=== PATIENT | female | born 1990 | race African-American/Black ===

== ENCOUNTER 2017-11-30 12:31 | Emergency (ER) | payer MEDICAID ==
[2017-11-30] MEDS ORDERED: ONDANSETRON HCL INJ/PF 4 MG/2 ML SDV IV ONE (12:57)
[2017-11-30] MEDS ORDERED: NORMAL SALINE 1000 ML 1,000 ML IV ONE (12:57)
--- NOTE | 2017-11-30 12:59 | ER Document Report ---
ED Medical Screen (RME) - General Chief Complaint: Abdominal Pain Stated Complaint: ABDOMINAL PAIN,VOMITING,HEADACHE Time Seen by Provider: 11/30/17 12:53 Notes: The patient is a 27-year-old female who presents with 1 day of multiple episodes of nonbloody, nonbilious emesis and watery diarrhea. She is also having a dull frontal headache after vomiting. Patient appears very anxious. Denies recent travel, hematemesis, fevers, tainted food or blood in her stool. PE: Shaking her legs and arms. Nontender abdomen. Normal bowel sounds. RRR. Lungs CTAB. I have greeted and performed a rapid initial assessment of this patient. A comprehensive ED assessment and evaluation of the patient, analysis of test results and completion of the medical decision making process will be conducted by additional ED providers. TRAVEL OUTSIDE OF THE [place] IN LAST 30 DAYS: No - Related Data Allergies/Adverse Reactions: No Known Allergies Allergy (Unverified 11/30/17 12:32) Home Medications: Blood pressure medication-does not know name Past Medical History - Social History Chew tobacco use (# tins/day): No Frequency of alcohol use: Occasional Drug Abuse: Marijuana Renal/ Medical History: Denies: Hx Peritoneal Dialysis Physical Exam - Vital signs Vitals: Temp Pulse Resp BP Pulse Ox 98.6 F 86 20 165/104 H 98 11/30/17 12:35 11/30/17 12:35 11/30/17 12:35 11/30/17 12:35 11/30/17 12:35 Course - Vital Signs Vital signs: Temp Pulse Resp BP Pulse Ox 98.6 F 86 20 165/104 H 98 11/30/17 12:35 11/30/17 12:35 11/30/17 12:35 11/30/17 12:35 11/30/17 12:35
[2017-11-30 13:59] LABS: APPEARANCE,URINE SLIGHTLY-CLOUDY; BILIRUBIN,URINE NEGATIVE (NEGATIVE); GLUCOSE, URINE NEGATIVE (NEGATIVE); KETONES,URINE TRACE mg/dL (NEGATIVE); LEUKOCYTE ESTERASE,URINE NEGATIVE (NEGATIVE); NITRITE,URINE NEGATIVE (NEGATIVE); PROTEIN,URINE 30 mg/dL (NEGATIVE); URINE SPECIFIC GRAVITY 1.019; UROBILINOGEN,URINE NEGATIVE mg/dL (<2.0)
[2017-11-30 14:01] LABS: COLOR,URINE AMBER
[2017-11-30] MEDS ORDERED: HYDROMORPHONE HCL INJ/PF 2 MG/ML AMPULE IV ONE (14:03)
[2017-11-30] MEDS ORDERED: DIPHENHYDRAMINE HCL 50 MG/ML VIAL IV ONE (14:04)
[2017-11-30] MEDS ORDERED: METOCLOPRAMIDE HCL INJ/PF 10 MG/2 ML SDV IV ONE (14:04)
--- NOTE | 2017-11-30 14:06 | ER Document Report ---
ED General - General Chief Complaint: Abdominal Pain Stated Complaint: ABDOMINAL PAIN,VOMITING,HEADACHE Time Seen by Provider: 11/30/17 12:53 Mode of Arrival: Ambulatory Information source: Patient Notes: This is a 27-year-old female with a history of hypertension who presents to the emergency room with nausea, vomiting, diarrhea and some abdominal cramping. Patient states she started to feel bad on Wednesday. She states that the nausea and vomiting did get worse yesterday. Patient states she is currently on her period. She denies any allergies to medicines. TRAVEL OUTSIDE OF THE [place] IN LAST 30 DAYS: No - HPI Onset: Last week Onset/Duration: Gradual Quality of pain: Dull Severity: Moderate Pain Level: 1 Associated symptoms: denies: Chest pain, Shortness of breath Exacerbated by: Denies Relieved by: Denies Similar symptoms previously: Yes Recently seen / treated by doctor: No - Related Data Allergies/Adverse Reactions: No Known Allergies Allergy (Unverified 11/30/17 12:32) Home Medications: Blood pressure medication-does not know name Past Medical History - General Information source: Patient - Social History Smoking Status: Current Some Day Smoker Cigarette use (# per day): Yes - Half pack per day Chew tobacco use (# tins/day): No Frequency of alcohol use: Occasional Drug Abuse: Marijuana Lives with: Family Family History: None Patient has suicidal ideation: No Patient has homicidal ideation: No - Past Medical History Cardiac Medical History: Reports: Hx Hypertension Pulmonary Medical History: Reports: None EENT Medical History: Reports: None Neurological Medical History: Reports: None Endocrine Medical History: Reports: None Renal/ Medical History: Reports: None. Denies: Hx Peritoneal Dialysis Malignancy Medical History: Reports: None GI Medical History: Reports: None Past Surgical History: Reports: Hx Section Review of Systems - Review of Systems Constitutional: denies: Chills, Fever EENT: See HPI Cardiovascular: No symptoms reported Respiratory: No symptoms reported Gastrointestinal: See HPI, Diarrhea, Nausea, Vomiting Genitourinary: No symptoms reported Female Genitourinary: No symptoms reported Musculoskeletal: No symptoms reported Skin: No symptoms reported Hematologic/Lymphatic: No symptoms reported Neurological/Psychological: Headaches Physical Exam - Vital signs Vitals: Temp Pulse Resp BP Pulse Ox 98.6 F 86 20 165/104 H 98 11/30/17 12:35 11/30/17 12:35 11/30/17 12:35 11/30/17 12:35 11/30/17 12:35 Notes: Physical exam: GENERAL: 87-year-old female, alert and oriented 3, patient vomiting actively at time of exam. HEAD: Atraumatic, normocephalic. EYES: Pupils equal round and reactive to light, extraocular movements intact, sclera anicteric, conjunctiva are normal. ENT: TMs normal, nares patent, oropharynx clear without exudates. Moist mucous membranes. NECK: Normal range of motion, supple without obvious mass or JVD. LUNGS: Breath sounds clear to auscultation bilaterally and equal. No wheezes rales or rhonchi. HEART: Regular rate and rhythm without murmurs, rubs or gallops. ABDOMEN: Soft, normoactive bowel sounds. No tenderness to palpation. No guarding, no rebound. No masses appreciated. EXTREMITIES: Normal range of motion, no pitting or edema. No clubbing or cyanosis. NEUROLOGICAL: Cranial nerves II through XII grossly intact. Normal speech, moving all extremities. Since neck is supple. No photophobia. No meningismus. PSYCH: Normal mood, normal affect. SKIN: Warm, Dry, normal turgor, no rashes or lesions noted. Course - Re-evaluation Re-evalutation: 11/30/17 16:31 Patient treated with anti-emetics and IV fluids. She was given a small amount of pain medicine. She is feeling much better at this time. She is requesting something to eat and drink. We will give a p.o. challenge. Her repeat abdominal exam is soft and nontender. 11/30/17 18:16 Patient ate and drank fine. Repeat abdomen exam soft and nontender. Requesting to go home. - Vital Signs Vital signs: Temp Pulse Resp BP Pulse Ox 97.7 F 66 20 132/78 H 100 11/30/17 16:47 11/30/17 16:47 11/30/17 16:47 11/30/17 16:47 11/30/17 16:47 - Laboratory Result Diagrams: 11/30/17 14:49 11/30/17 14:49 Laboratory results interpreted by me: 11/30/17 11/30/17 11/30/17 13:20 14:49 14:49 WBC 13.1 H Hgb 11.6 L Hct 35.1 L MCV 78 L MCH 25.7 L RDW 16.8 H Absolute Neutrophils 10.0 H Potassium 3.4 L BUN 6 L Urine Protein 30 H Urine Ketones TRACE H Urine Blood LARGE H Discharge - Discharge Clinical Impression: Vomiting with nausea, Headache Condition: Stable Disposition: HOME, SELF-CARE Additional Instructions: Please note: Many disease processes evolve over time and the ER visit offers only a brief assessment. This is why it is important that you: 1. Follow-up with your doctor in [place] in the next 24 hours to be reevaluated. When a copy of today's labs with you when you go. 2. If unable to see a physician in the next 24 hours, and you still have nausea and vomiting, return to the emergency room. 3. Return to the ER at once if your symptoms worsen or you are unable to tolerate fluids, if the pain becomes localized to the right lower side of the abdomen, or any concerns you are getting worse. 4. In the meantime, rest, drink plenty of fluids and advance her diet as tolerated. Continue your heart pressure medicine. Prescriptions: Metoclopramide HCl [Reglan 10 mg Tablet] 1 - 2 tab PO ASDIR PRN #10 tablet PRN Reason: Forms: Elevated Blood Pressure
[2017-11-30 15:04] LABS: ABSOLUTE BASOPHILS # (AUTO) 0.1 10^3/uL (0.0-0.2); ABSOLUTE LYMPHOCYTES (AUTO) 2.2 10^3/uL (0.5-4.7); ABSOLUTE MONOCYTES (AUTO) 0.9 10^3/uL (0.1-1.4); BASOPHILS % (AUTO) 0.5 % (0-2); EOSINOPHILS % (AUTO) 0.1 % (0-6); HEMATOCRIT 35.1 % (36.0-47.0); HEMOGLOBIN 11.6 g/dL (12.0-15.5); LYMPHOCYTES % (AUTO) 16.4 % (13-45); MEAN CORPUSCULAR HEMOGLOBIN 25.7 pg (27.0-33.4); MEAN CORPUSCULAR VOLUME 78 fl (80-97); MONOCYTES % (AUTO) 6.7 % (3-13); PLATELET COUNT 357 10^3/uL (150-450); RED BLOOD COUNT 4.52 10^6/uL (3.72-5.28); RED CELL DISTRIBUTION WIDTH 16.8 % (11.5-14.0); SEGMENTED NEUTROPHILS % (AUTO) 76.3 % (42-78); TOTAL CELLS COUNTED % (AUTO) 100 %; WHITE BLOOD COUNT 13.1 10^3/uL (4.0-10.5)
[2017-11-30 15:25] LABS: ALANINE AMINOTRANSFERASE 28 U/L (9-52); ALBUMIN 3.8 g/dL (3.5-5.0); ALKALINE PHOSPHATASE 42 U/L (38-126); ANION GAP 12 (5-19); ASPARTATE AMINO TRANSFERASE 20 U/L (14-36); BILIRUBIN,DIRECT 0.3 mg/dL (0.0-0.4); BILIRUBIN,TOTAL 0.7 mg/dL (0.2-1.3); BLOOD UREA NITROGEN 6 mg/dL (7-20); CARBON DIOXIDE 25 mmol/L (22-30); CHLORIDE 102 mmol/L (98-107); GLUCOSE 106 mg/dL (75-110); LIPASE 56.7 U/L (23-300); POTASSIUM 3.4 mmol/L (3.6-5.0); SODIUM 139.2 mmol/L (137-145); TOTAL PROTEIN 6.8 g/dL (6.3-8.2)
[2017-11-30 16:55] VITALS: BP 132/78
== END 2017-11-30 16:55 | disposition home or self-care (01) ==
LOC: ER 12:31
DX: R11.2 Nausea with vomiting, unspecified (principal); R19.7 Diarrhea, unspecified; R51 Headache; R10.9 Unspecified abdominal pain; F17.210 Nicotine dependence, cigarettes, uncomplicated; I10 Essential (primary) hypertension; Z79.899 Other long term (current) drug therapy
CPT/HCPCS: 99284; 96361; 96374; 96375; 36415; 83690; 85025; 81025; 80053; 81001; J1200; J2765; J1170; J2405; J7030

== ENCOUNTER 2018-03-09 11:01 | Emergency (ER) | payer MEDICAID ==
[2018-03-09] MEDS ORDERED: ONDANSETRON ODT 4 MG TAB (6 TAB/ER DISP) PO PRN (11:39)
[2018-03-09] MEDS ORDERED: KETOROLAC TROMETHAMINE 60 MG/2 ML SDV IM ONE (11:39)
--- NOTE | 2018-03-09 11:44 | ER Document Report ---
ED Medical Screen (RME) - General Chief Complaint: Abdominal Pain Stated Complaint: ABDOMINAL PAIN Time Seen by Provider: 03/09/18 11:38 Notes: 27 years old female presents today with 2 day history of intractable right- sided headache associated with nausea and vomited many times. No fever chills or other constitutional symptoms. Denies any injuries. On examination-very dramatic. Tenderness over the right side of the cervical muscles as well as temporal mandibular tenderness noted. TRAVEL OUTSIDE OF THE [place] IN LAST 30 DAYS: No - Related Data Allergies/Adverse Reactions: No Known Allergies Allergy (Verified 03/09/18 11:01) Past Medical History - Social History Frequency of alcohol use: Social Drug Abuse: Marijuana - Past Medical History Cardiac Medical History: Reports: Hx Hypertension Renal/ Medical History: Denies: Hx Peritoneal Dialysis Past Surgical History: Reports: Hx Section Physical Exam - Vital signs Vitals: Temp Pulse Resp BP Pulse Ox 98.1 F 90 20 183/112 H 99 03/09/18 11:05 03/09/18 11:05 03/09/18 11:05 03/09/18 11:05 03/09/18 11:05 Course - Vital Signs Vital signs: Temp Pulse Resp BP Pulse Ox 98.1 F 90 20 183/112 H 99 03/09/18 11:05 03/09/18 11:05 03/09/18 11:05 03/09/18 11:05 03/09/18 11:05
[2018-03-09 12:18] LABS: ABSOLUTE BASOPHILS # (AUTO) 0.1 10^3/uL (0.0-0.2); ABSOLUTE LYMPHOCYTES (AUTO) 2.8 10^3/uL (0.5-4.7); ABSOLUTE MONOCYTES (AUTO) 0.7 10^3/uL (0.1-1.4); ABSOLUTE NEUT (AUTO) 10.2 10^3/uL (1.7-8.2); BASOPHILS % (AUTO) 0.5 % (0-2); HEMATOCRIT 36.9 % (36.0-47.0); HEMOGLOBIN 12.2 g/dL (12.0-15.5); LYMPHOCYTES % (AUTO) 20.4 % (13-45); MEAN CORPUSCULAR HEMOGLOBIN 25.9 pg (27.0-33.4); MEAN CORPUSCULAR VOLUME 79 fl (80-97); MONOCYTES % (AUTO) 4.9 % (3-13); PLATELET COUNT 412 10^3/uL (150-450); RED CELL DISTRIBUTION WIDTH 16.8 % (11.5-14.0); SEGMENTED NEUTROPHILS % (AUTO) 74.2 % (42-78); TOTAL CELLS COUNTED % (AUTO) 100 %; WHITE BLOOD COUNT 13.7 10^3/uL (4.0-10.5)
[2018-03-09 12:23] LABS: APPEARANCE,URINE SLIGHTLY-CLOUDY; BILIRUBIN,URINE NEGATIVE (NEGATIVE); COLOR,URINE YELLOW; GLUCOSE, URINE NEGATIVE (NEGATIVE); KETONES,URINE TRACE mg/dL (NEGATIVE); LEUKOCYTE ESTERASE,URINE NEGATIVE (NEGATIVE); NITRITE,URINE NEGATIVE (NEGATIVE); PROTEIN,URINE NEGATIVE (NEGATIVE); URINE SPECIFIC GRAVITY 1.014; UROBILINOGEN,URINE NEGATIVE mg/dL (<2.0)
[2018-03-09 12:38] LABS: ALANINE AMINOTRANSFERASE 21 U/L (9-52); ALKALINE PHOSPHATASE 46 U/L (38-126); ANION GAP 16 (5-19); ASPARTATE AMINO TRANSFERASE 18 U/L (14-36); BILIRUBIN,DIRECT 0.3 mg/dL (0.0-0.4); BILIRUBIN,TOTAL 0.8 mg/dL (0.2-1.3); BLOOD UREA NITROGEN 6 mg/dL (7-20); CALCIUM 9.1 mg/dL (8.4-10.2); CARBON DIOXIDE 24 mmol/L (22-30); CHLORIDE 101 mmol/L (98-107); GLUCOSE 115 mg/dL (75-110); POTASSIUM 3.4 mmol/L (3.6-5.0); SODIUM 140.8 mmol/L (137-145); TOTAL PROTEIN 7.6 g/dL (6.3-8.2)
[2018-03-09 12:46] LABS: URINE AMPHETAMINES SCREEN NEGATIVE; URINE BARBITURATES SCREEN NEGATIVE; URINE BENZODIAZEPINES SCREEN NEGATIVE; URINE COCAINE SCREEN NEGATIVE; URINE MARIJUANA (THC) SCREEN UNCONFIRMED POSITIVE; URINE METHADONE SCREEN NEGATIVE; URINE PHENCYCLIDINE SCREEN NEGATIVE
--- NOTE | 2018-03-09 13:20 | RADIOLOGY REPORT (SQ) ---
EXAM DESCRIPTION: CT HEAD WITHOUT COMPLETED DATE/TIME: 03/09/2018 12:23 pm REASON FOR STUDY: Headache COMPARISON: None. TECHNIQUE: Axial images acquired through the brain without intravenous contrast. Images reviewed wi th bone, brain and subdural windows. Images stored on PACS. All CT scanners at this facility use dose modulation, iterative reconstruction, and/or weight based d osing when appropriate to reduce radiation dose to as low as reasonably achievable (ALARA). [facility]: Dose Right [facility]: CareDose [facility]: Dose Right [facility]: Teradose 4D [facility]: Smart Schedulize RADIATION DOSE: CT Rad equipment meets quality standard of care and radiation dose reduction techniq ues were employed. CTDIvol: 53.2 mGy. DLP: 964 mGy-cm. mGy. LIMITATIONS: None. FINDINGS: VENTRICLES: Normal size and contour. CEREBRUM: No masses. No hemorrhage. No midline shift. No evidence for acute infarction. Normal gra y/white matter differentiation. No areas of low density in the white matter. CEREBELLUM: No masses. No hemorrhage. No alteration of density. No evidence for acute infarction. EXTRAAXIAL SPACES: No fluid collections. No masses. ORBITS AND GLOBE: No intra- or extraconal masses. Normal contour of globe without masses. CALVARIUM: No fracture. PARANASAL SINUSES: No fluid or mucosal thickening. SOFT TISSUES: No mass or hematoma. OTHER: No other significant finding. IMPRESSION: NORMAL BRAIN CT WITHOUT CONTRAST. EVIDENCE OF ACUTE STROKE: NO. COMMENT: Quality ID # [id number]: Final reports with documentation of one or more dose reduction techniques (e.g., Automated exposure control, adjustment of the mA and/or kV according to patient size, use of iterative reconstruction technique) TECHNICAL DOCUMENTATION: JOB ID: [id number] [employer]- All Rights Reserved Reading location - IP/workstation name: [facility]
[2018-03-09 13:38] VITALS: BP 167/111
[2018-03-09] MEDS ORDERED: NORMAL SALINE 1000 ML 1,000 ML IV ONE (13:41)
[2018-03-09] MEDS ORDERED: FENTANYL CITRATE INJ/PF 100 MCG/2 ML AMPUL IV ONE (13:41)
[2018-03-09] MEDS ORDERED: ONDANSETRON HCL INJ/PF 4 MG/2 ML SDV IV ONE (13:41)
--- NOTE | 2018-03-09 15:05 | ER Document Report ---
ED General - General Chief Complaint: Abdominal Pain Stated Complaint: ABDOMINAL PAIN Time Seen by Provider: 03/09/18 11:38 Notes: 27-year-old female patient to the emergency department chief complaint of nausea and vomiting and abdominal pain. Patient states that she has been drinking "hard liquor" and she "needs an IV and give me something for the pain" . States that she also has a bad headache. When asked if she thinks she has a hangover she will not answer. Patient was seen initially at triage and received Toradol IM. Patient states that that is not going to work that she is going to need an IV. Patient states that she has chronic headaches. When asked if she has a primary care doctor locally she says "I am not from around here". TRAVEL OUTSIDE OF THE [place] IN LAST 30 DAYS: No - HPI Onset: This morning Onset/Duration: Gradual, Persistent Quality of pain: Dull Severity: Moderate Pain Level: 3 Associated symptoms: Nausea, Vomiting - Related Data Allergies/Adverse Reactions: No Known Allergies Allergy (Verified 03/09/18 11:01) Past Medical History - General Information source: Patient - Social History Smoking Status: Current Every Day Smoker Frequency of alcohol use: Social Drug Abuse: Marijuana Lives with: Family Family History: None Patient has suicidal ideation: No Patient has homicidal ideation: No - Past Medical History Cardiac Medical History: Reports: Hx Hypertension Renal/ Medical History: Denies: Hx Peritoneal Dialysis Past Surgical History: Reports: Hx Section Review of Systems - Review of Systems Notes: Constitutional: denies: Chills, Diaphoresis, Fever, Malaise, Weakness EENT: denies: Eye discharge, Blurred vision, Tearing, Double vision, Nose congestion, Nose discharge, Throat swelling, Mouth pain Cardiovascular: denies: Palpitations, Heart racing, Orthopnea, Dyspnea, Chest pain Respiratory: denies: Cough, Hurts to breathe, Wheezing, Shortness of breath Gastrointestinal: Nausea, vomiting, abdominal pain Genitourinary: denies: Burning, Dysuria, Discharge, Frequency, Flank pain, Hematuria Musculoskeletal: denies: Joint pain, Joint swelling, Muscle pain, Muscle stiffness, back pain Hematologic/Lymphatic: denies: Anemia, Easy bleeding, Easy bruising, Blood clots Neurological/Psychological: denies: Confusion, Dementia, Depression, Loss of consciousness. Positive for headaches Skin: No lesions, no masses, no skin breakdown, no abscesses Physical Exam - Vital signs Vitals: Temp Pulse Resp BP Pulse Ox 98.1 F 90 20 183/112 H 99 03/09/18 11:05 03/09/18 11:05 03/09/18 11:05 03/09/18 11:05 03/09/18 11:05 Interpretation: Hypertensive - General General appearance: Appears well, Alert - HEENT Head: Normocephalic, Atraumatic Eyes: Normal Pupils: PERRL - Respiratory Respiratory status: No respiratory distress Chest status: Nontender Breath sounds: Normal Chest palpation: Normal - Cardiovascular Rhythm: Regular Heart sounds: Normal auscultation Murmur: No - Abdominal Inspection: Normal Distension: No distension Bowel sounds: Normal Tenderness: Nontender Organomegaly: No organomegaly - Back Back: Normal, Nontender - Extremities General upper extremity: Normal inspection, Nontender, Normal color, Normal ROM , Normal temperature General lower extremity: Normal inspection, Nontender, Normal color, Normal ROM , Normal temperature, Normal weight bearing. No: Malini's sign - Neurological Neuro grossly intact: Yes Cognition: Normal Orientation: AAOx4 Tr Coma Scale Eye Opening: Spontaneous Rye Coma Scale Verbal: Oriented [place]ye Coma Scale Motor: Obeys Commands Tr Coma Scale Total: 15 Speech: Normal Motor strength normal: LUE, RUE, LLE, RLE Sensory: Normal - Psychological Associated symptoms: Normal affect, Normal mood - Skin Skin Temperature: Warm Skin Moisture: Dry Skin Color: Normal Course - Re-evaluation Re-evalutation: 03/09/18 15:13 Patient was evaluated. When I entered the room she was asleep. At the had to wake her up to do the exam. After waking her up she began to complain of pain. I have ordered IV fluids and pain medicine and nausea control. Patient has a slightly elevated WBC count but a very benign abdominal exam. She denies Any vaginal complaints or lower pelvic pain.. 03/09/18 15:13 03/09/18 16:09 Patient is sitting upright now. Feels much better. Has a slight elevated WBC count. She is hungry and eating tolerating p.o. At this time will DC. 03/09/18 16:13 Laboratory 03/09/18 03/09/18 03/09/18 11:43 11:43 11:43 WBC 13.7 H RBC 4.70 Hgb 12.2 Hct 36.9 MCV 79 L MCH 25.9 L MCHC 33.0 RDW 16.8 H Plt Count 412 Seg Neutrophils % 74.2 Lymphocytes % 20.4 Monocytes % 4.9 Eosinophils % 0.0 Basophils % 0.5 Absolute Neutrophils 10.2 H Absolute Lymphocytes 2.8 Absolute Monocytes 0.7 Absolute Eosinophils 0.0 Absolute Basophils 0.1 Sodium 140.8 Potassium 3.4 L Chloride 101 Carbon Dioxide 24 Anion Gap 16 BUN 6 L Creatinine 0.57 Est GFR ( Amer) > 60 Est GFR (Non-Af Amer) > 60 Glucose 115 H Calcium 9.1 Total Bilirubin 0.8 Direct Bilirubin 0.3 Neonat Total Bilirubin Not Reportable Neonat Direct Bilirubin Not Reportable Neonat Indirect Bili Not Reportable AST 18 ALT 21 Alkaline Phosphatase 46 Total Protein 7.6 Albumin 4.0 Lipase Urine Color YELLOW Urine Appearance SLIGHTLY-CLOUDY Urine pH 7.0 Ur Specific [place] 1.014 Urine Protein NEGATIVE Urine Glucose (UA) NEGATIVE Urine Ketones TRACE H Urine Blood NEGATIVE Urine Nitrite NEGATIVE Urine Bilirubin NEGATIVE Urine Urobilinogen NEGATIVE Ur Leukocyte Esterase NEGATIVE Urine WBC (Auto) 3 Urine RBC (Auto) 5 U Hyaline Cast (Auto) 1 Squamous Epi Cells Auto 5 Urine Mucus (Auto) OCC Urine Ascorbic Acid NEGATIVE Urine HCG, Qual NEGATIVE Urine Opiates Screen Urine Methadone Screen Ur Barbiturates Screen Ur Phencyclidine Scrn Ur Amphetamines Screen U Benzodiazepines Scrn Urine Cocaine Screen U Marijuana (THC) Screen 03/09/18 03/09/18 11:43 11:43 WBC RBC Hgb Hct MCV MCH MCHC RDW Plt Count Seg Neutrophils % Lymphocytes % Monocytes % Eosinophils % Basophils % Absolute Neutrophils Absolute Lymphocytes Absolute Monocytes Absolute Eosinophils Absolute Basophils Sodium Potassium Chloride Carbon Dioxide Anion Gap BUN Creatinine Est GFR ( Amer) Est GFR (Non-Af Amer) Glucose Calcium Total Bilirubin Direct Bilirubin Neonat Total Bilirubin Neonat Direct Bilirubin Neonat Indirect Bili AST ALT Alkaline Phosphatase Total Protein Albumin Lipase 64.3 Urine Color Urine Appearance Urine pH Ur Specific [place] Urine Protein Urine Glucose (UA) Urine Ketones Urine Blood Urine Nitrite Urine Bilirubin Urine Urobilinogen Ur Leukocyte Esterase Urine WBC (Auto) Urine RBC (Auto) U Hyaline Cast (Auto) Squamous Epi Cells Auto Urine Mucus (Auto) Urine Ascorbic Acid Urine HCG, Qual Urine Opiates Screen NEGATIVE Urine Methadone Screen NEGATIVE Ur Barbiturates Screen NEGATIVE Ur Phencyclidine Scrn NEGATIVE Ur Amphetamines Screen NEGATIVE U Benzodiazepines Scrn NEGATIVE Urine Cocaine Screen NEGATIVE U Marijuana (THC) Screen UNCONFIRMED POSITIVE - Vital Signs Vital signs: Temp Pulse Resp BP Pulse Ox 98.9 F 89 18 167/111 H 99 03/09/18 13:35 03/09/18 13:35 03/09/18 13:35 03/09/18 13:35 03/09/18 13:35 - Laboratory Result Diagrams: 03/09/18 11:43 03/09/18 11:43 Laboratory results interpreted by me: 03/09/18 03/09/18 03/09/18 11:43 11:43 11:43 WBC 13.7 H MCV 79 L MCH 25.9 L RDW 16.8 H Absolute Neutrophils 10.2 H Potassium 3.4 L BUN 6 L Glucose 115 H Urine Ketones TRACE H Discharge - Discharge Clinical Impression: Acute gastritis Qualifiers: Gastritis type: unspecified gastritis Gastritis bleeding: without bleeding Qualified Code(s): K29.00 - Acute gastritis without bleeding Condition: Good Instructions: Abdominal Pain ([facility]), Observation for Appendicitis ([facility]), Nausea or Vomiting, Nonspecific ([facility]) Prescriptions: Famotidine [Pepcid 20 mg Tablet] 20 mg PO DAILY #12 tablet Promethazine HCl [Phenergan 25 mg Supp.rect] 1 supp NC Q6H #12 supp.rect
[2018-03-09] MEDS ORDERED: FAMOTIDINE 20 MG TABLET PO ONE (16:14)
== END 2018-03-09 16:37 | disposition home or self-care (01) ==
LOC: ER 11:01
DX: K29.00 Acute gastritis without bleeding (principal); R11.2 Nausea with vomiting, unspecified; R10.9 Unspecified abdominal pain; R51 Headache; D72.829 Elevated white blood cell count, unspecified; I10 Essential (primary) hypertension; F17.200 Nicotine dependence, unspecified, uncomplicated
CPT/HCPCS: 99284; 96361; 96374; 96375; 36415; 83690; 85025; 81025; 80053; 81001; 80307; 70450; J3490; J1885; J3010; J2405; J7030

== ENCOUNTER 2018-03-11 08:46 | Emergency (ER) | payer MEDICAID ==
[2018-03-11 09:00] VITALS: BP 144/95
[2018-03-11] MEDS ORDERED: ONDANSETRON 4 MG TAB.RAPDIS PO ONE (09:22)
--- NOTE | 2018-03-11 09:24 | ER Document Report ---
ED Medical Screen (RME) - General Chief Complaint: Nausea/Vomiting Stated Complaint: VOMITING, HEADACHE Time Seen by Provider: 03/11/18 09:21 Mode of Arrival: Ambulatory Information source: Patient TRAVEL OUTSIDE OF THE [place] IN LAST 30 DAYS: No - HPI Patient complains to provider of: abd pain; vomiting Onset: Yesterday - pt with vomiting that started yesterday and crampy abdominal pain - Related Data Allergies/Adverse Reactions: No Known Allergies Allergy (Verified 03/09/18 11:01) Past Medical History - Past Medical History Cardiac Medical History: Reports: Hx Hypertension Renal/ Medical History: Denies: Hx Peritoneal Dialysis Past Surgical History: Reports: Hx Section Physical Exam - Vital signs Vitals: Temp Pulse Resp BP Pulse Ox 98.7 F 77 14 144/95 H 99 03/11/18 08:58 03/11/18 08:58 03/11/18 08:58 03/11/18 08:58 03/11/18 08:58 Course - Vital Signs Vital signs: Temp Pulse Resp BP Pulse Ox 98.7 F 77 14 144/95 H 99 03/11/18 08:58 03/11/18 08:58 03/11/18 08:58 03/11/18 08:58 03/11/18 08:58
[2018-03-11 10:00] LABS: ABSOLUTE BASOPHILS # (AUTO) 0.1 10^3/uL (0.0-0.2); ABSOLUTE LYMPHOCYTES (AUTO) 2.7 10^3/uL (0.5-4.7); ABSOLUTE MONOCYTES (AUTO) 0.8 10^3/uL (0.1-1.4); ABSOLUTE NEUT (AUTO) 10.4 10^3/uL (1.7-8.2); BASOPHILS % (AUTO) 0.5 % (0-2); EOSINOPHILS % (AUTO) 0.2 % (0-6); HEMATOCRIT 36.8 % (36.0-47.0); LYMPHOCYTES % (AUTO) 19.2 % (13-45); MEAN CORPUSCULAR HGB CONC 32.7 g/dL (32.0-36.0); MEAN CORPUSCULAR VOLUME 80 fl (80-97); MONOCYTES % (AUTO) 5.6 % (3-13); PLATELET COUNT 413 10^3/uL (150-450); RED BLOOD COUNT 4.63 10^6/uL (3.72-5.28); RED CELL DISTRIBUTION WIDTH 16.5 % (11.5-14.0); SEGMENTED NEUTROPHILS % (AUTO) 74.5 % (42-78); TOTAL CELLS COUNTED % (AUTO) 100 %; WHITE BLOOD COUNT 13.9 10^3/uL (4.0-10.5)
[2018-03-11 10:16] LABS: AMORPHOUS SEDIMENT,URINE TRACE /HPF; APPEARANCE,URINE CLOUDY; BILIRUBIN,URINE NEGATIVE (NEGATIVE); COLOR,URINE YELLOW; GLUCOSE, URINE NEGATIVE (NEGATIVE); KETONES,URINE 20 mg/dL (NEGATIVE); LEUKOCYTE ESTERASE,URINE NEGATIVE (NEGATIVE); NITRITE,URINE NEGATIVE (NEGATIVE); PROTEIN,URINE 30 mg/dL (NEGATIVE); URINE SPECIFIC GRAVITY 1.027
[2018-03-11 10:33] LABS: ALANINE AMINOTRANSFERASE 25 U/L (9-52); ALBUMIN 3.8 g/dL (3.5-5.0); ALKALINE PHOSPHATASE 41 U/L (38-126); ANION GAP 10 (5-19); ASPARTATE AMINO TRANSFERASE 14 U/L (14-36); BILIRUBIN,DIRECT 0.2 mg/dL (0.0-0.4); BILIRUBIN,TOTAL 0.8 mg/dL (0.2-1.3); BLOOD UREA NITROGEN 8 mg/dL (7-20); CALCIUM 8.9 mg/dL (8.4-10.2); CARBON DIOXIDE 29 mmol/L (22-30); CHLORIDE 101 mmol/L (98-107); GLUCOSE 87 mg/dL (75-110); POTASSIUM 3.4 mmol/L (3.6-5.0); SODIUM 140.4 mmol/L (137-145); TOTAL PROTEIN 7.1 g/dL (6.3-8.2)
[2018-03-11] MEDS ORDERED: NORMAL SALINE 1000 ML 1,000 ML IV ONE (10:55)
--- NOTE | 2018-03-11 11:03 | RADIOLOGY REPORT (SQ) ---
EXAM DESCRIPTION: ACUTE ABDOMEN SERIES COMPLETED DATE/TIME: 03/11/2018 10:47 am REASON FOR STUDY: abd pain COMPARISON: None. NUMBER OF VIEWS: Three views. TECHNIQUE: Frontal chest, supine abdomen and upright/decubitus abdomen radiographic images acquired. LIMITATIONS: None. FINDINGS: CHEST: Lungs clear of infiltrates. FREE AIR: None. No abnormal gas collections. BOWEL GAS PATTERN: Nonobstructive pattern. No dilated loops or air fluid levels. CALCIFICATIONS: No suspicious calcifications. HARDWARE: None in the abdomen. SOFT TISSUES: No gross mass or suggestion of organomegaly. BONES: No acute fracture. No worrisome bone lesions. OTHER: No other significant finding. IMPRESSION: NO RADIOGRAPHIC EVIDENCE FOR ACUTE ABDOMINAL DISEASE. TECHNICAL DOCUMENTATION: JOB ID: [id number] [employer]- All Rights Reserved Reading location - IP/workstation name: [email or web address]
[2018-03-11] MEDS ORDERED: DIPHENHYDRAMINE HCL 50 MG/ML VIAL IV ONE (11:04)
[2018-03-11] MEDS ORDERED: PROCHLORPERAZINE EDISYLATE INJ 10 MG/2 ML VIAL IV ONE (11:04)
[2018-03-11] MEDS ORDERED: KETOROLAC TROMETHAMINE INJ/PF 30 MG/1 ML SDV IV ONE (11:05)
[2018-03-11 12:02] LABS: LIPASE 34.5 U/L (23-300)
[2018-03-11] MEDS ORDERED: PROMETHAZINE HCL 25 MG SUPP.RECT PR ONE (13:28)
--- NOTE | 2018-03-11 13:31 | ER Document Report ---
ED GI/ - General Chief Complaint: Nausea/Vomiting Stated Complaint: VOMITING, HEADACHE Time Seen by Provider: 03/11/18 09:21 Mode of Arrival: Ambulatory Information source: Patient Notes: Patient presents complaining of headache with nausea and vomiting that started yesterday. Patient states she did have abdominal tenderness although states that it is improved and she thinks it was only due to the vomiting. Patient denies any fever. Patient denies any diarrhea. TRAVEL OUTSIDE OF THE [place] IN LAST 30 DAYS: No - HPI Patient complains to provider of: Abdominal pain - Now resolved, Vomiting Onset: Yesterday Timing/Duration: Gradual Quality of pain: Achy Pain Level: 4 Location: Other - Headache Vaginal bleeding (Compared to normal period): None Associated symptoms: Nausea, Vomiting. denies: Diarrhea, Dizzy, Fever, Loss of appetite, Urinary hesitancy, Urinary frequency, Urinary retention Exacerbated by: Denies Relieved by: Denies Similar symptoms previously: No Recently seen / treated by doctor: No - Related Data Allergies/Adverse Reactions: No Known Allergies Allergy (Verified 03/11/18 09:23) Past Medical History - General Information source: Patient - Social History Smoking Status: Current Every Day Smoker Frequency of alcohol use: None Drug Abuse: None Occupation: alf Lives with: Family Family History: None Patient has suicidal ideation: No Patient has homicidal ideation: No - Past Medical History Cardiac Medical History: Reports: Hx Hypertension Renal/ Medical History: Denies: Hx Peritoneal Dialysis Past Surgical History: Reports: Hx Section Review of Systems - Review of Systems Constitutional: No symptoms reported. denies: Fever EENT: No symptoms reported. denies: Throat pain Cardiovascular: No symptoms reported. denies: Chest pain Respiratory: No symptoms reported. denies: Cough, Short of breath Gastrointestinal: Abdominal pain, Nausea, Vomiting Genitourinary: No symptoms reported. denies: Dysuria, Flank pain Female Genitourinary: No symptoms reported. denies: Musculoskeletal: No symptoms reported. denies: Back pain Skin: No symptoms reported Hematologic/Lymphatic: No symptoms reported Neurological/Psychological: Headaches Physical Exam - Vital signs Vitals: Temp Pulse Resp BP Pulse Ox 98.7 F 77 14 144/95 H 99 03/11/18 08:58 03/11/18 08:58 03/11/18 08:58 03/11/18 08:58 03/11/18 08:58 - General General appearance: Appears well, Alert In distress: None - HEENT Head: Normocephalic, Atraumatic Eyes: Normal Conjunctiva: Normal Nasal: Normal Mouth/Lips: Normal Mucous membranes: Normal Pharynx: Normal Neck: Normal, Supple. No: Lymphadenopathy - Respiratory Respiratory status: No respiratory distress Chest status: Nontender Breath sounds: Normal. No: Rales, Rhonchi, Stridor, Wheezing Chest palpation: Normal - Cardiovascular Rhythm: Regular Heart sounds: S1 appreciated, S2 appreciated Murmur: No - Abdominal Inspection: Morbidly Obese Distension: No distension Bowel sounds: Normal Tenderness: Nontender Organomegaly: No organomegaly - Back Back: Normal, Nontender. No: CVA tenderness - Extremities General upper extremity: Normal inspection, Normal ROM General lower extremity: Normal inspection, Normal ROM - Neurological Neuro grossly intact: Yes Cognition: Normal Tr Coma Scale Eye Opening: Spontaneous [place] Coma Scale Verbal: Oriented Tr Coma Scale Motor: Obeys Commands [place] Coma Scale Total: 15 - Psychological Associated symptoms: Normal affect, Normal mood - Skin Skin Temperature: Warm Skin Moisture: Dry Skin Color: Normal Course - Re-evaluation Re-evalutation: 03/11/18 13:30 Patient denies any vomiting but would like to have Phenergan in anticipation of being discharged home. P.o. fluids provided. Patient reports modest improvement of headache symptoms. 03/11/18 13:48 Patient tolerated oral fluids without emesis. Patient states she is feeling better and is ready to be discharged home. The patient presents with headache without signs of BENCH MOLDER bleed, stroke, infection, or other serious etiology. The patient is neurologically intact. Given the extremely low risk of these diagnoses further testing and evaluation for these possibilities does not appear to be indicated at this time. Patient presents with abdominal pain without signs of peritonitis or other life-threatening or serious etiology. Patient appears stable for discharge and has been instructed to return immediately if the symptoms worsen in any way, or in 8-12 hours if not improved for reevaluation. The patient has been instructed to return if the symptoms worsen or change in any way. - Vital Signs Vital signs: Temp Pulse Resp BP Pulse Ox 98.7 F 77 14 144/95 H 99 03/11/18 08:58 03/11/18 08:58 03/11/18 08:58 03/11/18 08:58 03/11/18 08:58 - Laboratory Result Diagrams: 03/11/18 09:30 03/11/18 09:30 Laboratory results interpreted by me: 03/11/18 03/11/18 03/11/18 09:30 09:30 09:30 WBC 13.9 H MCH 26.0 L RDW 16.5 H Absolute Neutrophils 10.4 H Potassium 3.4 L Urine Protein 30 H Urine Ketones 20 H Urine Urobilinogen 4.0 H 03/11/18 13:48 Labs- Entire Visit 03/11/18 03/11/18 03/11/18 09:30 09:30 09:30 WBC 13.9 H RBC 4.63 Hgb 12.0 Hct 36.8 MCV 80 MCH 26.0 L MCHC 32.7 RDW 16.5 H Plt Count 413 Seg Neutrophils % 74.5 Lymphocytes % 19.2 Monocytes % 5.6 Eosinophils % 0.2 Basophils % 0.5 Absolute Neutrophils 10.4 H Absolute Lymphocytes 2.7 Absolute Monocytes 0.8 Absolute Eosinophils 0.0 Absolute Basophils 0.1 Sodium 140.4 Potassium 3.4 L Chloride 101 Carbon Dioxide 29 Anion Gap 10 BUN 8 Creatinine 0.66 Est GFR ( Amer) > 60 Est GFR (Non-Af Amer) > 60 Glucose 87 Calcium 8.9 Magnesium Total Bilirubin 0.8 Direct Bilirubin 0.2 Neonat Total Bilirubin Not Reportable Neonat Direct Bilirubin Not Reportable Neonat Indirect Bili Not Reportable AST 14 ALT 25 Alkaline Phosphatase 41 Total Protein 7.1 Albumin 3.8 Lipase Urine Color YELLOW Urine Appearance CLOUDY Urine pH 6.0 Ur Specific [place] 1.027 Urine Protein 30 H Urine Glucose (UA) NEGATIVE Urine Ketones 20 H Urine Blood NEGATIVE Urine Nitrite NEGATIVE Urine Bilirubin NEGATIVE Urine Urobilinogen 4.0 H Ur Leukocyte Esterase NEGATIVE Urine WBC (Auto) 9 Urine RBC (Auto) 13 Urine Bacteria (Auto) TRACE Squamous Epi Cells Auto 27 Amorphous Sediment Auto TRACE Urine Mucus (Auto) MANY Urine Ascorbic Acid NEGATIVE Urine HCG, Qual NEGATIVE 03/11/18 09:30 WBC RBC Hgb Hct MCV MCH MCHC RDW Plt Count Seg Neutrophils % Lymphocytes % Monocytes % Eosinophils % Basophils % Absolute Neutrophils Absolute Lymphocytes Absolute Monocytes Absolute Eosinophils Absolute Basophils Sodium Potassium Chloride Carbon Dioxide Anion Gap BUN Creatinine Est GFR ( Amer) Est GFR (Non-Af Amer) Glucose Calcium Magnesium 1.9 Total Bilirubin Direct Bilirubin Neonat Total Bilirubin Neonat Direct Bilirubin Neonat Indirect Bili AST ALT Alkaline Phosphatase Total Protein Albumin Lipase 34.5 Urine Color Urine Appearance Urine pH Ur Specific [place] Urine Protein Urine Glucose (UA) Urine Ketones Urine Blood Urine Nitrite Urine Bilirubin Urine Urobilinogen Ur Leukocyte Esterase Urine WBC (Auto) Urine RBC (Auto) Urine Bacteria (Auto) Squamous Epi Cells Auto Amorphous Sediment Auto Urine Mucus (Auto) Urine Ascorbic Acid Urine HCG, Qual - Diagnostic Test Radiology reviewed: Reports reviewed Discharge - Discharge Clinical Impression: Hypokalemia Headache Qualifiers: Headache type: unspecified Headache chronicity pattern: unspecified pattern Intractability: not intractable Qualified Code(s): R51 - Headache Nausea and vomiting Qualifiers: Vomiting type: unspecified Vomiting Intractability: non-intractable Qualified Code(s): R11.2 - Nausea with vomiting, unspecified Condition: Stable Disposition: HOME, SELF-CARE Instructions: Antinausea Medication ([facility]), Headache ([facility]), Viral Syndrome ([facility]) , Vomiting ([facility]) Additional Instructions: Return immediately for any new or worsening symptoms Followup with your primary care provider, call tomorrow to make a followup appointment Stay well-hydrated, increase oral fluids Prescriptions: Promethazine HCl [Phenergan 25 mg Supp.rect] 1 supp [place] Q6H PRN #12 supp.rect PRN Reason: Forms: Return to Work Referrals: [facility] [Provider Group] - Follow up as needed
[2018-03-11] MEDS ORDERED: POTASSIUM CHLORIDE 10 MEQ CAPSULE.ER PO ONE (13:49)
== END 2018-03-11 14:10 | disposition home or self-care (01) ==
LOC: ER 08:46
DX: R11.2 Nausea with vomiting, unspecified (principal); E87.6 Hypokalemia; R51 Headache; R10.9 Unspecified abdominal pain; I10 Essential (primary) hypertension; F17.200 Nicotine dependence, unspecified, uncomplicated
CPT/HCPCS: 99284; 96374; 96375; 36415; 83690; 83735; 85025; 81025; 80053; 81001; 74022; J1200; S0119; J1885; J0780; J3490

== ENCOUNTER 2018-06-02 09:05 | Emergency (ER) | payer MEDICAID ==
[2018-06-02] MEDS ORDERED: ONDANSETRON 4 MG TAB.RAPDIS PO ONE (09:21)
[2018-06-02] MEDS ORDERED: MORPHINE SULFATE 10 MG/ML INJ IV ONE ×2 (09:22→10:37)
--- NOTE | 2018-06-02 09:27 | ER Document Report ---
ED Medical Screen (RME) - General Chief Complaint: Abdominal Pain Stated Complaint: BACK PAIN, ABDOMINAL PAIN,VOMITING Time Seen by Provider: 06/02/18 09:16 Mode of Arrival: Ambulatory Information source: Patient Notes: 27-year-old female with past medical history significant for hypertension presents emergency department with headache, rhinorrhea, upper back pain, myalgias, abdominal pain for the last 2 days. Symptoms have been constant. Patient states that she initially had some nausea and vomiting. She states that she began developing diffuse abdominal pain that she describes as an aching sensation. She denies any radiation of the pain. She denies any alleviating or exacerbating factors. Patient states that she is also having pain in her upper back. She describes it as a sharp and stabbing sensation. She denies any radiation of this pain. She denies any alleviating or exacerbating factors. Headache is a dull ache in the forehead. No radiation. Gradual onset. Similar to previous headaches. Patient denies any fever, chills, neck pain, dysuria, hematuria. Her last menstrual period was May 02. Patient denies any sick contacts. I have greeted and performed a rapid initial assessment of this patient. A comprehensive ED assessment and evaluation of the patient, analysis of test results and completion of the medical decision making process will be conducted by additional ED providers. PHYSICAL EXAMINATION: GENERAL: Well-appearing, well-nourished, tearful HEAD: Atraumatic, normocephalic. EYES: Pupils equal round extraocular movements intact, conjunctiva are normal. ENT: Nares patent NECK: Normal range of motion. No cervical spine tenderness. No paracervical muscle tenderness. LUNGS: No respiratory distress Musculoskeletal: Trapezius muscle tenderness to palpation bilaterally. No midline cervical or thoracic tenderness. NEUROLOGICAL: Normal speech, normal gait. PSYCH: Normal mood, normal affect. SKIN: Warm, Dry, normal turgor, no rashes or lesions noted. TRAVEL OUTSIDE OF THE [place] IN LAST 30 DAYS: No - Related Data Allergies/Adverse Reactions: No Known Allergies Allergy (Verified 06/02/18 09:07) Past Medical History - Social History Chew tobacco use (# tins/day): No Frequency of alcohol use: Social Drug Abuse: None - Past Medical History Cardiac Medical History: Reports: Hx Hypertension Renal/ Medical History: Denies: Hx Peritoneal Dialysis Past Surgical History: Reports: Hx Section Physical Exam - Vital signs Vitals: Temp Pulse Resp BP Pulse Ox 98.3 F 90 18 153/108 H 100 06/02/18 09:10 06/02/18 09:10 06/02/18 09:10 06/02/18 09:10 06/02/18 09:10 Course - Vital Signs Vital signs: Temp Pulse Resp BP Pulse Ox 98.3 F 90 18 153/108 H 100 06/02/18 09:10 06/02/18 09:10 06/02/18 09:10 06/02/18 09:10 06/02/18 09:10
[2018-06-02 10:05] LABS: APPEARANCE,URINE CLOUDY; BILIRUBIN,URINE NEGATIVE (NEGATIVE); COLOR,URINE AMBER; GLUCOSE, URINE NEGATIVE (NEGATIVE); KETONES,URINE 80 mg/dL (NEGATIVE); LEUKOCYTE ESTERASE,URINE NEGATIVE (NEGATIVE); NITRITE,URINE NEGATIVE (NEGATIVE); PROTEIN,URINE 100 mg/dL (NEGATIVE); URINE SPECIFIC GRAVITY 1.032
[2018-06-02 10:16] LABS: A TYPE INFLUENZA AG NEGATIVE (NEGATIVE); B INFLUENZA AG NEGATIVE (NEGATIVE)
--- NOTE | 2018-06-02 10:29 | ER Document Report ---
ED General - General Chief Complaint: Abdominal Pain Stated Complaint: BACK PAIN, ABDOMINAL PAIN,VOMITING Time Seen by Provider: 06/02/18 09:16 Mode of Arrival: Ambulatory Notes: Patient is a 27-year-old female that presents to the emergency department for chief complaint of epigastric abdominal pain. Patient states that this pain started after having nausea and vomiting after drinking liquor on Wednesday, is been constant since then she describes as 7 out of 10, a sharp sensation in the epigastric region of her abdomen. She has had some nausea still as well. Denies any fevers, chills, night sweats, chest pain or shortness of breath, she also denies having any urinary complaints or vaginal complaints at this time. She does report having symptoms like this in the past when she was drinking liquor. Past Medical History: Denies chronic medical conditions Past Surgical History: Social History: Admits to smoking cigarettes daily, and occasional alcohol use, denies illicit drug use. Family History: Reviewed and noncontributory for presenting illness Allergies: Reviewed, see documented allergy list. REVIEW OF SYSTEMS: Unless otherwise stated in this report the patient's positive and negative responses for review of systems for constitutional, eyes, ENT, cardiovascular, respiratory, gastrointestinal, neurological, genitourinary, musculoskeletal, and integumentary systems and related systems to the presenting problem are either as stated in the HPI or were not pertinent or were negative for the symptoms and/or complaints related to the presenting medical problem. PHYSICAL EXAMINATION: Vital signs reviewed, nursing noted reviewed. GENERAL: Well-appearing, well-nourished and appears uncomfortable HEAD: Atraumatic, normocephalic. EYES: Eyes appear normal, extraocular movements intact, sclera anicteric, conjunctiva are normal. ENT: nares patent, oropharynx clear without exudates. Moist mucous membranes. NECK: Normal range of motion, supple without lymphadenopathy LUNGS: Breath sounds clear to auscultation bilaterally and equal. No wheezes rales or rhonchi. HEART: Regular rate and rhythm without murmurs ABDOMEN: Soft, obese, epigastric tenderness to palpation, normoactive bowel sounds. No rebound, guarding, or rigidity. No masses appreciated. EXTREMITIES: Nontender, good range of motion, no pitting or edema. NEUROLOGICAL: No focal neurological deficits. Moves all extremities spontaneously Motor and sensory grossly intact on exam. PSYCH: Normal mood, normal affect. SKIN: Warm, Dry, normal turgor, no rashes or lesions noted on exposed skin TRAVEL OUTSIDE OF THE [place] IN LAST 30 DAYS: No - Related Data Allergies/Adverse Reactions: No Known Allergies Allergy (Verified 06/02/18 09:07) Past Medical History - General Information source: Patient - Social History Smoking Status: Current Every Day Smoker Chew tobacco use (# tins/day): No Frequency of alcohol use: Social Drug Abuse: None Family History: None Patient has suicidal ideation: No Patient has homicidal ideation: No - Past Medical History Cardiac Medical History: Reports: Hx Hypertension Renal/ Medical History: Denies: Hx Peritoneal Dialysis Past Surgical History: Reports: Hx Section Physical Exam - Vital signs Vitals: Temp Pulse Resp BP Pulse Ox 98.3 F 90 18 153/108 H 100 06/02/18 09:10 06/02/18 09:10 06/02/18 09:10 06/02/18 09:10 06/02/18 09:10 Course - Re-evaluation Re-evalutation: \Patient seen and examined vital signs reviewed. Laboratory data and imaging were ordered as appropriate for the patient's presenting symptoms and complaint, with consideration of any critical or life threatening conditions that may be associated with their obtained history and exam as noted above. Patient was treated with Zofran and morphine and Protonix Results were reviewed when available and demonstrated leukocytosis, likely from patient vomiting, CT imaging was unremarkable, except for hiatal hernia which is likely causing the patient's pain, CMP unremarkable The patient was re-evaluated and was stable, pain improved Evaluation was most consistent with epigastric abdominal pain, etiology most likely hiatal hernia, advised follow-up with gastroenterology, given prescription for Protonix. Results were discussed with the patient at this point, after careful consideration I feel that that patient can be discharged from the emergency department, the patient was educated treatments and reasons to return to the emergency department based on their presumed diagnosis as noted above, they were advised to followup with a primary care physician in 2-3 days. Patient was agreeable to plan of care. *Note is created using voice recognition software and may contain spelling, syntax or grammatical errors. Laboratory 06/02/18 06/02/18 06/02/18 09:28 09:28 10:32 WBC 17.9 H RBC 4.62 Hgb 11.8 L Hct 35.3 L MCV 77 L MCH 25.6 L MCHC 33.5 RDW 16.6 H Plt Count 368 Seg Neutrophils % 84.3 H Lymphocytes % 8.7 L Monocytes % 6.5 Eosinophils % 0.1 Basophils % 0.4 Absolute Neutrophils 15.1 H Absolute Lymphocytes 1.6 Absolute Monocytes 1.2 Absolute Eosinophils 0.0 Absolute Basophils 0.1 Sodium Potassium Chloride Carbon Dioxide Anion Gap BUN Creatinine Est GFR ( Amer) Est GFR (Non-Af Amer) Glucose Calcium Total Bilirubin Direct Bilirubin Neonat Total Bilirubin Neonat Direct Bilirubin Neonat Indirect Bili AST ALT Alkaline Phosphatase Total Protein Albumin Lipase Urine Color [place] Urine Appearance CLOUDY Urine pH 5.0 Ur Specific [place] 1.032 Urine Protein 100 H Urine Glucose (UA) NEGATIVE Urine Ketones 80 H Urine Blood NEGATIVE Urine Nitrite NEGATIVE Urine Bilirubin NEGATIVE Urine Urobilinogen 4.0 H Ur Leukocyte Esterase NEGATIVE Urine WBC (Auto) 4 Urine RBC (Auto) 24 Urine Bacteria (Auto) TRACE Squamous Epi Cells Auto 18 Urine Mucus (Auto) MANY Urine Ascorbic Acid 40 H Urine HCG, Qual NEGATIVE Influenza A (Rapid) NEGATIVE Influenza B (Rapid) NEGATIVE 06/02/18 10:32 WBC RBC Hgb Hct MCV MCH MCHC RDW Plt Count Seg Neutrophils % Lymphocytes % Monocytes % Eosinophils % Basophils % Absolute Neutrophils Absolute Lymphocytes Absolute Monocytes Absolute Eosinophils Absolute Basophils Sodium 142.7 Potassium 3.6 Chloride 103 Carbon Dioxide 25 Anion Gap 15 BUN 10 Creatinine 0.57 Est GFR ( Amer) > 60 Est GFR (Non-Af Amer) > 60 Glucose 113 H Calcium 9.4 Total Bilirubin 1.8 H Direct Bilirubin 0.4 Neonat Total Bilirubin Not Reportable Neonat Direct Bilirubin Not Reportable Neonat Indirect Bili Not Reportable AST 18 ALT 13 Alkaline Phosphatase 41 Total Protein 7.9 Albumin 4.4 Lipase 28.7 Urine Color Urine Appearance Urine pH Ur Specific [place] Urine Protein Urine Glucose (UA) Urine Ketones Urine Blood Urine Nitrite Urine Bilirubin Urine Urobilinogen Ur Leukocyte Esterase Urine WBC (Auto) Urine RBC (Auto) Urine Bacteria (Auto) Squamous Epi Cells Auto Urine Mucus (Auto) Urine Ascorbic Acid Urine HCG, Qual Influenza A (Rapid) Influenza B (Rapid) Abdomen/Pelvis CT 06/02/18 11:19 IMPRESSION: 1. Hiatal hernia, otherwise unremarkable abdomen and pelvis. 2. Atelectasis versus bilateral pneumonia. Clinical correlation is needed. - Vital Signs Vital signs: Temp Pulse Resp BP Pulse Ox 98.3 F 73 16 139/90 H 100 06/02/18 09:10 06/02/18 13:20 06/02/18 13:20 06/02/18 13:20 06/02/18 13:20 - Laboratory Result Diagrams: 06/02/18 10:32 06/02/18 10:32 Laboratory results interpreted by me: 06/02/18 06/02/18 06/02/18 09:28 10:32 10:32 WBC 17.9 H Hgb 11.8 L Hct 35.3 L MCV 77 L MCH 25.6 L RDW 16.6 H Seg Neutrophils % 84.3 H Lymphocytes % 8.7 L Absolute Neutrophils 15.1 H Glucose 113 H Total Bilirubin 1.8 H Urine Protein 100 H Urine Ketones 80 H Urine Urobilinogen 4.0 H Urine Ascorbic Acid 40 H Discharge - Discharge Clinical Impression: Epigastric abdominal pain, Hiatal hernia Condition: Stable Disposition: HOME, SELF-CARE Instructions: Abdominal Pain ([facility]) Additional Instructions: Please return to the emergency department if you have any worsening, or concern of your symptoms. Please return to the emergency department if you develop chest pain, difficulty breathing, severe abdominal pain, or ongoing vomiting. Please follow-up with your primary care physician in 2-3 days and any other recommended physicians. If prescribed, take all medications as directed. If you have any questions or concerns do not hesitate to return the emergency department for evaluation. Prescriptions: Ondansetron [Zofran Odt 4 mg Tablet] 1 tab PO Q8H PRN #15 tab.rapdis PRN Reason: For Nausea/Vomiting Pantoprazole Sodium [Protonix] 40 mg PO DAILY #30 tablet. Referrals: JULIA BARNES MD [ACTIVE STAFF] - Follow up in 3-5 days
[2018-06-02] MEDS ORDERED: PANTOPRAZOLE SODIUM 40 MG VIAL IV ONE (10:37)
[2018-06-02 10:45] LABS: ABSOLUTE BASOPHILS # (AUTO) 0.1 10^3/uL (0.0-0.2); ABSOLUTE LYMPHOCYTES (AUTO) 1.6 10^3/uL (0.5-4.7); ABSOLUTE MONOCYTES (AUTO) 1.2 10^3/uL (0.1-1.4); ABSOLUTE NEUT (AUTO) 15.1 10^3/uL (1.7-8.2); BASOPHILS % (AUTO) 0.4 % (0-2); EOSINOPHILS % (AUTO) 0.1 % (0-6); HEMATOCRIT 35.3 % (36.0-47.0); HEMOGLOBIN 11.8 g/dL (12.0-15.5); LYMPHOCYTES % (AUTO) 8.7 % (13-45); MEAN CORPUSCULAR HEMOGLOBIN 25.6 pg (27.0-33.4); MEAN CORPUSCULAR HGB CONC 33.5 g/dL (32.0-36.0); MEAN CORPUSCULAR VOLUME 77 fl (80-97); MONOCYTES % (AUTO) 6.5 % (3-13); PLATELET COUNT 368 10^3/uL (150-450); RED BLOOD COUNT 4.62 10^6/uL (3.72-5.28); RED CELL DISTRIBUTION WIDTH 16.6 % (11.5-14.0); SEGMENTED NEUTROPHILS % (AUTO) 84.3 % (42-78); TOTAL CELLS COUNTED % (AUTO) 100 %; WHITE BLOOD COUNT 17.9 10^3/uL (4.0-10.5)
[2018-06-02 10:59] LABS: ALANINE AMINOTRANSFERASE 13 U/L (9-52); ALBUMIN 4.4 g/dL (3.5-5.0); ALKALINE PHOSPHATASE 41 U/L (38-126); ANION GAP 15 (5-19); ASPARTATE AMINO TRANSFERASE 18 U/L (14-36); BILIRUBIN,DIRECT 0.4 mg/dL (0.0-0.4); BILIRUBIN,TOTAL 1.8 mg/dL (0.2-1.3); BLOOD UREA NITROGEN 10 mg/dL (7-20); CALCIUM 9.4 mg/dL (8.4-10.2); CARBON DIOXIDE 25 mmol/L (22-30); CHLORIDE 103 mmol/L (98-107); GLUCOSE 113 mg/dL (75-110); LIPASE 28.7 U/L (23-300); POTASSIUM 3.6 mmol/L (3.6-5.0); SODIUM 142.7 mmol/L (137-145); TOTAL PROTEIN 7.9 g/dL (6.3-8.2)
--- NOTE | 2018-06-02 12:33 | RADIOLOGY REPORT (SQ) ---
EXAM DESCRIPTION: CT ABD/PELVIS WITH IV ONLY COMPLETED DATE/TIME: 06/02/2018 12:18 pm REASON FOR STUDY: epigastric abdominal pain COMPARISON: None. TECHNIQUE: CT scan of the abdomen and pelvis performed using helical scanning technique with dynamic intravenous contrast injection. No oral contrast. Images reviewed with lung, soft tissue, and bone windows. Reconstructed coronal and sagittal MPR images reviewed. Delayed images for evaluation of the urinary system also acquired. All images stored on PACS. All CT scanners at this facility use dose modulation, iterative reconstruction, and/or weight based d osing when appropriate to reduce radiation dose to as low as reasonably achievable (ALARA). [facility]: Dose Right [facility]: CareDose [facility]: Dose Right [facility]: Teradose 4D [facility]: [employer] CONTRAST TYPE AND DOSE: contrast/concentration: Isovue 350.00 mg/ml; Total Contrast Delivered: 100.0 ml; Total Saline Delivered: 51.0 ml RENAL FUNCTION: GFR > 60. RADIATION DOSE: CT Rad equipment meets quality standard of care and radiation dose reduction techniq ues were employed. CTDIvol: 20.7 - 21.1 mGy. DLP: 2336 mGy-cm.. LIMITATIONS: None. FINDINGS: LOWER CHEST: Hiatal hernia. Patchy subsegmental airspace disease in the lingula, middle l obe and both lower lobes. LIVER: Normal size. No masses. No dilated ducts. SPLEEN: Normal size. No focal lesions. PANCREAS: No masses. No significant calcifications. No adjacent inflammation or peripancreatic fluid collections. Pancreatic duct not dilated. GALLBLADDER: No identified stones by CT criteria. No inflammatory changes to suggest cholecystitis. ADRENAL GLANDS: No significant masses or asymmetry. RIGHT KIDNEY AND URETER: No solid masses. No significant calcifications. No hydronephrosis or hyd roureter. LEFT KIDNEY AND URETER: No solid masses. No significant calcifications. No hydronephrosis or hydr oureter. AORTA AND VESSELS: No aneurysm. No dissection. Renal arteries, SMA, celiac without stenosis. RETROPERITONEUM: No retroperitoneal adenopathy, hemorrhage or masses. BOWEL AND PERITONEAL CAVITY: No masses or inflammatory changes. No free fluid or peritoneal masses. APPENDIX: Normal. PELVIS: No mass. No free fluid. Normal bladder. ABDOMINAL WALL: Small fat containing umbilical hernia. BONES: No significant or acute findings. OTHER: No other significant finding. IMPRESSION: 1. Hiatal hernia, otherwise unremarkable abdomen and pelvis. 2. Atelectasis versus bilateral pneumonia. Clinical correlation is needed. TECHNICAL DOCUMENTATION: JOB ID: [id number] Quality ID # [id number]: Final reports with documentation of one or more dose reduction techniques (e.g., Au tomated exposure control, adjustment of the mA and/or kV according to patient size, use of iterative reconstruction technique) 2010 [employer]- All Rights Reserved Reading location - IP/workstation name: [email or web address] [id number]
[2018-06-02 13:21] VITALS: BP 139/90
== END 2018-06-02 13:20 | disposition home or self-care (01) ==
LOC: ER 09:05
DX: K44.9 Diaphragmatic hernia without obstruction or gangrene (principal); R10.13 Epigastric pain; R11.2 Nausea with vomiting, unspecified; F17.210 Nicotine dependence, cigarettes, uncomplicated; E66.9 Obesity, unspecified
CPT/HCPCS: 99284; 96374; 96375; 36415; 83690; 85025; 81025; 80053; 81001; 87804; 74177; S0119; J2270; S0164

== ENCOUNTER 2018-11-30 10:29 | Emergency (ER) | payer SELFPAY ==
--- NOTE | 2018-11-30 10:58 | ER Document Report ---
ED Medical Screen (RME) - General Chief Complaint: Chest Pain Stated Complaint: CHEST PAIN Time Seen by Provider: 11/30/18 10:50 Mode of Arrival: Ambulatory Information source: Patient TRAVEL OUTSIDE OF THE [place] IN LAST 30 DAYS: No - HPI Patient complains to provider of: CHEST AND ABDO PAIN Notes: 11/30/18 10:56 Patient here with complaints of chest and abdominal pain. It is difficult to get an accurate triage as the patient is moaning and appears to be uncomfortable. Patient states that lower abdominal pain started first with nausea vomiting. No diarrhea. She is now having chest pain. States she started to feel weak while was talking to her and then had what appeared to be a very brief possible syncopal episode in the wheelchair. No seizure-like activity. She states that she was feeling weak and then went limp and then woke back up. Exam Patient moaning, appears to be uncomfortable. Patient had a brief syncopal type episode while in her wheelchair in triage, therefore we have taken the patient to room immediately so that she does not fall out of a wheelchair and injure herself in triage. I was not able to perform much more of an exam on her at that time. Plan CBC, CMP, lipase, urine, urine , EKG, troponin, chest x-ray An initial examination was made on the patient as part of the triage process, and it was determined a more comprehensive evaluation was necessary. Initial labs were ordered and patient was transferred to another provider in the ED who assumed care and finished evaluation and plan. - Related Data Allergies/Adverse Reactions: No Known Allergies Allergy (Verified 06/02/18 09:07) Past Medical History - Past Medical History Cardiac Medical History: Reports: Hx Hypertension Renal/ Medical History: Denies: Hx Peritoneal Dialysis Past Surgical History: Reports: Hx Section Physical Exam - Vital signs Vitals: Temp Pulse Resp BP Pulse Ox 98.3 F 107 H 18 163/84 H 100 11/30/18 10:41 11/30/18 10:41 11/30/18 10:41 11/30/18 10:41 11/30/18 10:41 Course - Vital Signs Vital signs: Temp Pulse Resp BP Pulse Ox 98.3 F 107 H 18 163/84 H 100 11/30/18 10:41 11/30/18 10:41 11/30/18 10:41 11/30/18 10:41 11/30/18 10:41
[2018-11-30] MEDS ORDERED: PANTOPRAZOLE SODIUM 40 MG VIAL IV ONE (11:41)
[2018-11-30] MEDS ORDERED: ONDANSETRON HCL INJ/PF 4 MG/2 ML SDV IV ONE (11:41)
[2018-11-30] MEDS ORDERED: MORPHINE SULFATE 10 MG/ML INJ IV ONE (11:41)
[2018-11-30] MEDS ORDERED: NORMAL SALINE 1000 ML 1,000 ML IV ONE (11:41)
[2018-11-30 12:09] LABS: ABSOLUTE BASOPHILS # (AUTO) 0.1 10^3/uL (0.0-0.2); ABSOLUTE LYMPHOCYTES (AUTO) 1.4 10^3/uL (0.5-4.7); ABSOLUTE MONOCYTES (AUTO) 0.5 10^3/uL (0.1-1.4); ABSOLUTE NEUT (AUTO) 10.4 10^3/uL (1.7-8.2); BASOPHILS % (AUTO) 0.8 % (0-2); HEMOGLOBIN 12.8 g/dL (12.0-15.5); LYMPHOCYTES % (AUTO) 11.1 % (13-45); MEAN CORPUSCULAR HEMOGLOBIN 24.9 pg (27.0-33.4); MEAN CORPUSCULAR HGB CONC 32.9 g/dL (32.0-36.0); MEAN CORPUSCULAR VOLUME 76 fl (80-97); MONOCYTES % (AUTO) 4.2 % (3-13); PLATELET COUNT 465 10^3/uL (150-450); RED BLOOD COUNT 5.16 10^6/uL (3.72-5.28); SEGMENTED NEUTROPHILS % (AUTO) 83.9 % (42-78); TOTAL CELLS COUNTED % (AUTO) 100 %; WHITE BLOOD COUNT 12.4 10^3/uL (4.0-10.5)
--- NOTE | 2018-11-30 12:45 | RADIOLOGY REPORT (SQ) ---
EXAM DESCRIPTION: CHEST SINGLE VIEW COMPLETED DATE/TIME: 11/30/2018 12:33 pm REASON FOR STUDY: CHEST PAIN COMPARISON: AP chest 03/11/2018 EXAM PARAMETERS: NUMBER OF VIEWS: One view. TECHNIQUE: Single frontal radiographic view of the chest acquired. RADIATION DOSE: NA LIMITATIONS: None. FINDINGS: LUNGS AND PLEURA: No opacities, masses or pneumothorax. No pleural effusion. MEDIASTINUM AND HILAR STRUCTURES: No masses. Contour normal. HEART AND VASCULAR STRUCTURES: Heart normal in size. Normal vasculature. BONES: No acute findings. HARDWARE: None in the chest. OTHER: No other significant finding. IMPRESSION: NO ACUTE RADIOGRAPHIC FINDING IN THE CHEST. TECHNICAL DOCUMENTATION: JOB ID: [id number] [employer]- All Rights Reserved Reading location - IP/workstation name: [email or web address]
[2018-11-30 14:05] LABS: ALANINE AMINOTRANSFERASE 15 U/L (9-52); ALBUMIN 4.6 g/dL (3.5-5.0); ALKALINE PHOSPHATASE 54 U/L (38-126); ANION GAP 15 (5-19); ASPARTATE AMINO TRANSFERASE 41 U/L (14-36); BILIRUBIN,DIRECT 0.4 mg/dL (0.0-0.4); BILIRUBIN,TOTAL 1.4 mg/dL (0.2-1.3); BLOOD UREA NITROGEN 12 mg/dL (7-20); CALCIUM 9.9 mg/dL (8.4-10.2); CARBON DIOXIDE 23 mmol/L (22-30); CHLORIDE 106 mmol/L (98-107); GLUCOSE 117 mg/dL (75-110); LIPASE 34.4 U/L (23-300); POTASSIUM 3.6 mmol/L (3.6-5.0); TOTAL PROTEIN 8.8 g/dL (6.3-8.2)
[2018-11-30 14:29] LABS: APPEARANCE,URINE SLIGHTLY-CLOUDY; BILIRUBIN,URINE NEGATIVE (NEGATIVE); COLOR,URINE YELLOW; GLUCOSE, URINE NEGATIVE (NEGATIVE); KETONES,URINE 80 mg/dL (NEGATIVE); LEUKOCYTE ESTERASE,URINE NEGATIVE (NEGATIVE); NITRITE,URINE NEGATIVE (NEGATIVE); PROTEIN,URINE 100 mg/dL (NEGATIVE); URINE SPECIFIC GRAVITY 1.026; UROBILINOGEN,URINE NEGATIVE mg/dL (<2.0)
--- NOTE | 2018-11-30 15:09 | ER Document Report ---
ED General - General Chief Complaint: Chest Pain Stated Complaint: CHEST PAIN Time Seen by Provider: 11/30/18 10:50 Primary Care Provider: MURALI PELAYO MD [ACTIVE STAFF] - Follow up as needed (This is the number for primary care doctor) Mode of Arrival: Ambulatory Information source: Patient Notes: This is a 28-year-old female who presents to the emergency room with nausea, vomiting and abdominal cramping. Patient states that his symptoms were started last night. She denies any fever. She denies any chest pain or shortness of breath. TRAVEL OUTSIDE OF THE [place] IN LAST 30 DAYS: No - HPI Onset: Yesterday Onset/Duration: Gradual Quality of pain: Dull Severity: Moderate Pain Level: 1 Associated symptoms: Nausea, Vomiting. denies: Chest pain, Fever, Shortness of breath Exacerbated by: Denies Relieved by: Denies Similar symptoms previously: Yes Recently seen / treated by doctor: No - Related Data Allergies/Adverse Reactions: No Known Allergies Allergy (Verified 06/02/18 09:07) Past Medical History - General Information source: Patient - Social History Smoking Status: Unknown if Ever Smoked Cigarette use (# per day): No Chew tobacco use (# tins/day): No Frequency of alcohol use: None Drug Abuse: None Family History: None Patient has suicidal ideation: No Patient has homicidal ideation: No - Past Medical History Cardiac Medical History: Reports: Hx Hypertension Renal/ Medical History: Denies: Hx Peritoneal Dialysis Past Surgical History: Reports: Hx Section Review of Systems - Review of Systems Constitutional: denies: Chills, Fever EENT: No symptoms reported Cardiovascular: denies: Chest pain, Palpitations, Heart racing Respiratory: denies: Cough, Short of breath, Wheezing Gastrointestinal: Abdominal pain, Nausea, Vomiting Genitourinary: No symptoms reported Female Genitourinary: No symptoms reported Musculoskeletal: No symptoms reported Skin: No symptoms reported Hematologic/Lymphatic: No symptoms reported Neurological/Psychological: No symptoms reported Physical Exam - Vital signs Vitals: Temp Pulse Resp BP Pulse Ox 98.3 F 107 H 18 163/84 H 100 11/30/18 10:41 11/30/18 10:41 11/30/18 10:41 11/30/18 10:41 11/30/18 10:41 Notes: Physical exam: GENERAL: Patient is alert and oriented x3, no acute distress HEAD: Atraumatic, normocephalic. EYES: Pupils equal round and reactive to light, extraocular movements intact, sclera anicteric, conjunctiva are normal. ENT: TMs normal, nares patent, oropharynx clear without exudates. Moist mucous membranes. NECK: Normal range of motion, supple without obvious mass or JVD. LUNGS: Breath sounds clear to auscultation bilaterally and equal. No wheezes rales or rhonchi. HEART: Regular rate and rhythm without murmurs, rubs or gallops. ABDOMEN: Soft, normoactive bowel sounds. No tenderness to palpation. No guarding, no rebound. No masses appreciated. EXTREMITIES: Normal range of motion, no pitting or edema. No clubbing or cya nosis. NEUROLOGICAL: Cranial nerves II through XII grossly intact. Normal speech, moving all extremities. PSYCH: Normal mood, normal affect. SKIN: Warm, Dry, normal turgor, no rashes or lesions noted. Course - Re-evaluation Re-evalutation: 11/30/18 18:18 Patient given antiemetics and some pain medicine and observe. Her pain resolved and she was requesting to drink and eat. I gave her instructions for discharge. - Vital Signs Vital signs: Temp Pulse Resp BP Pulse Ox 98.4 F 107 H 15 140/94 H 100 11/30/18 15:22 11/30/18 10:41 11/30/18 15:01 11/30/18 15:00 11/30/18 14:00 - Laboratory Result Diagrams: 11/30/18 11:50 11/30/18 13:37 Laboratory results interpreted by me: 11/30/18 11/30/18 11/30/18 11:50 13:37 13:45 WBC 12.4 H MCV 76 L MCH 24.9 L RDW 17.0 H Plt Count 465 H Seg Neutrophils % 83.9 H Lymphocytes % 11.1 L Absolute Neutrophils 10.4 H Glucose 117 H Total Bilirubin 1.4 H AST 41 H Total Protein 8.8 H Urine Protein 100 H Urine Ketones 80 H Urine Blood MODERATE H - Diagnostic Test Radiology reviewed: Image reviewed, Reports reviewed - X-rays clear Discharge - Discharge Clinical Impression: Vomiting with nausea, Abdominal pain resolved Condition: Stable Disposition: HOME, SELF-CARE Additional Instructions: As we discussed, your labs look good. Return to the emergency room for worsening vomiting, not tolerating fluids, worsening pain. I do want you to follow-up with a primary care doctor: I left the number of one on the chart. Prescriptions: Promethazine HCl [Phenergan 25 mg Tablet] 25 mg PO Q6H PRN #15 tablet PRN Reason: Referrals: MURALI PELAYO MD [ACTIVE STAFF] - Follow up as needed (This is the number for primary care doctor)
[2018-11-30 15:22] VITALS: BP 140/94
--- NOTE | 2018-11-30 23:08 | EKG REPORT ---
SEVERITY:- BORDERLINE ECG - SINUS TACHYCARDIA PROBABLE LEFT ATRIAL ABNORMALITY : Confirmed by: Willam Barnes 30-Nov-2018 23:07:23
== END 2018-11-30 15:22 | disposition home or self-care (01) ==
LOC: ER 10:29
DX: R11.2 Nausea with vomiting, unspecified (principal); R10.9 Unspecified abdominal pain; R07.9 Chest pain, unspecified; I10 Essential (primary) hypertension
CPT/HCPCS: 93005; 99284; 96361; 96374; 96375; 36415; 83690; 85025; 81025; 80053; 81001; 84484; 71045; 93010; J2270; S0164; J2405; J7030

== ENCOUNTER 2019-05-14 16:51 | Emergency (ER) | payer MEDICAID ==
[2019-05-14 17:01] VITALS: BP 148/101
[2019-05-14] MEDS ORDERED: PROCHLORPERAZINE EDISYLATE INJ 10 MG/2 ML VIAL IV ONE (17:11)
[2019-05-14] MEDS ORDERED: DIPHENHYDRAMINE HCL 50 MG/ML VIAL IV ONE (17:11)
--- NOTE | 2019-05-14 17:13 | ER Document Report ---
ED Medical Screen (RME) - General Chief Complaint: Headache Stated Complaint: BACK PAIN, HEADACHE,VOMITING Time Seen by Provider: 05/14/19 17:10 Mode of Arrival: Ambulatory Information source: Patient Notes: Patient presents complaining of headache that started yesterday. Patient states she has had nausea and vomiting and the exertion of vomiting has caused her upper back to her. Patient denies any abdominal pain cough or cold symptoms. I have greeted and performed a rapid initial assessment of this patient. A comprehensive ED assessment and evaluation of the patient, analysis of test results and completion of the medical decision making process will be conducted by additional ED providers. TRAVEL OUTSIDE OF THE [place] IN LAST 30 DAYS: No - Related Data Allergies/Adverse Reactions: No Known Allergies Allergy (Verified 05/14/19 17:08) Past Medical History - Social History Chew tobacco use (# tins/day): No Frequency of alcohol use: None Drug Abuse: None - Past Medical History Cardiac Medical History: Reports: Hx Hypertension Renal/ Medical History: Denies: Hx Peritoneal Dialysis Past Surgical History: Reports: Hx Section Physical Exam - Vital signs Vitals: Temp Pulse Resp BP Pulse Ox 98.2 F 109 H 18 163/128 H 98 05/14/19 16:58 05/14/19 16:58 05/14/19 16:58 05/14/19 16:58 05/14/19 16:58 - General General appearance: Alert Notes: Upper thoracic midline tenderness, no step-off or deformity - Neurological Neuro grossly intact: Yes [place] Coma Scale Eye Opening: Spontaneous Rt Coma Scale Verbal: Oriented [place] Coma Scale Motor: Obeys Commands Tr Coma Scale Total: 15 Course - Vital Signs Vital signs: Temp Pulse Resp BP Pulse Ox 98.2 F 87 18 148/101 H 98 05/14/19 16:58 05/14/19 16:59 05/14/19 16:58 05/14/19 16:59 05/14/19 16:58
[2019-05-14] MEDS ORDERED: NORMAL SALINE 1000 ML 1,000 ML IV ONE (17:45)
--- NOTE | 2019-05-14 17:45 | ER Document Report ---
ED General - General Chief Complaint: Headache Stated Complaint: BACK PAIN, HEADACHE,VOMITING Time Seen by Provider: 05/14/19 17:10 Mode of Arrival: Ambulatory TRAVEL OUTSIDE OF THE [place] IN LAST 30 DAYS: No - HPI Patient complains to provider of: headache Notes: 28 y/o presenting to ED for evaluation of severe bilateral frontal headache ongoing for 2 days w/ associated nausea/vomiting and now upper back pain no arm/leg weakness or numbness no neck pain or fever no speech or vision change she states she has headaches like this often that resolve w/ morphine no trauma no rashes - Related Data Allergies/Adverse Reactions: No Known Allergies Allergy (Verified 05/14/19 17:08) Past Medical History - General Information source: Patient - Social History Smoking Status: Never Smoker Chew tobacco use (# tins/day): No Frequency of alcohol use: None Drug Abuse: None Family History: None Patient has suicidal ideation: No Patient has homicidal ideation: No - Past Medical History Cardiac Medical History: Reports: Hx Hypertension Renal/ Medical History: Denies: Hx Peritoneal Dialysis Past Surgical History: Reports: Hx Section Review of Systems - Review of Systems Constitutional: No symptoms reported. denies: Fever EENT: No symptoms reported Cardiovascular: No symptoms reported Respiratory: No symptoms reported Gastrointestinal: Nausea, Vomiting Genitourinary: No symptoms reported Female Genitourinary: No symptoms reported Musculoskeletal: Back pain. denies: Neck pain Skin: No symptoms reported Hematologic/Lymphatic: No symptoms reported Neurological/Psychological: Headaches. denies: Weakness, Gait changes, Speech impairment, Numbness Physical Exam - Vital signs Vitals: Temp Pulse Resp BP Pulse Ox 98.2 F 109 H 18 163/128 H 98 05/14/19 16:58 05/14/19 16:58 05/14/19 16:58 05/14/19 16:58 05/14/19 16:58 Interpretation: Normal - General General appearance: Appears well, Alert, Other - obese In distress: Moderate - HEENT Head: Normocephalic, Atraumatic Eyes: Normal Conjunctiva: Normal Pupils: PERRL Ears: Normal Tympanic membrane: Normal Sinus: Normal Nasal: Normal Mucous membranes: Normal Pharynx: Normal Neck: Normal. No: Anterior cervical chain, Brudzinski, Kernig's, Lymphadenopathy, Meningismus - Respiratory Respiratory status: No respiratory distress Chest status: Nontender Breath sounds: Normal Chest palpation: Normal - Cardiovascular Rhythm: Regular Heart sounds: Normal auscultation Murmur: No - Abdominal Inspection: Normal Distension: No distension Bowel sounds: Normal Tenderness: Nontender Organomegaly: No organomegaly - Back Back: Tender - right sided thoracic area tender to palpation - Extremities General upper extremity: Normal inspection, Nontender, Normal color, Normal ROM, Normal temperature General lower extremity: Normal inspection, Nontender, Normal color, Normal ROM, Normal temperature, Normal weight bearing. No: Malini's sign - Neurological Neuro grossly intact: Yes Cognition: Normal Orientation: AAOx4 [place] Coma Scale Eye Opening: Spontaneous [place] Coma Scale Verbal: Oriented Tr Coma Scale Motor: Obeys Commands Tr Coma Scale Total: 15 Speech: Normal Cranial nerves: Normal Cerebellar coordination: Normal Motor strength normal: LUE, RUE, LLE, RLE Sensory: Normal - Psychological Associated symptoms: Normal affect, Normal mood - Skin Skin Temperature: Warm Skin Moisture: Dry Skin Color: Normal Course - Re-evaluation Re-evalutation: 05/14/19 17:54 patient with bilateral frontal headache ongoing since yesterday will provide migraine cocktail and check labs to include back pain likely from retching - will obtain cxr and treat headache related pain and re-assess 05/14/19 20:[address] is negative labs are largely unremarkable - mild leukocytosis and anemia pain is controlled 05/14/19 20:26 patient is not meningitic recommend flexeril for back spasms recommend zofran for nausea/vomiting recommend pcp follow up for ongoing headaches - fioricet rx will be provided at dc - Vital Signs Vital signs: Temp Pulse Resp BP Pulse Ox 98.2 F 87 18 148/101 H 98 05/14/19 16:58 05/14/19 16:59 05/14/19 16:58 05/14/19 16:59 05/14/19 16:58 - Laboratory Result Diagrams: 05/14/19 17:18 05/14/19 17:18 Laboratory results interpreted by me: 05/14/19 17:18 WBC 12.3 H Hgb 9.9 L Hct 30.8 L MCV 74 L MCH 23.6 L RDW 18.0 H Plt Count 466 H Absolute Neuts (auto) 8.7 H - Diagnostic Test Radiology reviewed: Image reviewed, Reports reviewed Discharge - Discharge Clinical Impression: Elevated blood pressure reading, Strain of thoracic back region Headache Qualifiers: Headache type: unspecified Headache chronicity pattern: acute headache Intractability: not intractable Qualified Code(s): R51 - Headache Condition: Stable Disposition: HOME, SELF-CARE Instructions: Antinausea Medication ([facility]), Headache ([facility]) Additional Instructions: follow up with primary doctor for follow up and consider outpatient neurology follow up for ongoing headaches take medicine as directed return to the ED with worsening Prescriptions: Ondansetron [Zofran Odt 4 mg Tablet] 1 - 2 tab PO Q4HP PRN #10 tab.rapdis PRN Reason: Butalb/Acetaminophen/Caffeine [Fioricet (50-325-40 mg) Tablet] 1 - 2 tab PO Q4H #20 tab Cyclobenzaprine HCl [Flexeril 10 mg Tablet] 10 mg PO TIDP PRN #15 tab PRN Reason: Forms: Elevated Blood Pressure Referrals: KELLIE WHITTINGTON MD [HONORARY] - Follow up as needed
[2019-05-14 17:47] LABS: ABSOLUTE BASOPHILS # (AUTO) 0.2 10^3/uL (0.0-0.2); ABSOLUTE EOSINOPHILS # (AUTO) 0.1 10^3/uL (0.0-0.6); ABSOLUTE LYMPHOCYTES (AUTO) 2.5 10^3/uL (0.5-4.7); ABSOLUTE MONOCYTES (AUTO) 0.9 10^3/uL (0.1-1.4); ABSOLUTE NEUT (AUTO) 8.7 10^3/uL (1.7-8.2); BASOPHILS % (AUTO) 1.2 % (0-2); EOSINOPHILS % (AUTO) 0.6 % (0-6); HEMATOCRIT 30.8 % (36.0-47.0); HEMOGLOBIN 9.9 g/dL (12.0-15.5); LYMPHOCYTES % (AUTO) 20.7 % (13-45); MEAN CORPUSCULAR HEMOGLOBIN 23.6 pg (27.0-33.4); MEAN CORPUSCULAR VOLUME 74 fl (80-97); MONOCYTES % (AUTO) 7.2 % (3-13); PLATELET COUNT 466 10^3/uL (150-450); RED BLOOD COUNT 4.17 10^6/uL (3.72-5.28); SEGMENTED NEUTROPHILS % (AUTO) 70.3 % (42-78); TOTAL CELLS COUNTED % (AUTO) 100 %; WHITE BLOOD COUNT 12.3 10^3/uL (4.0-10.5)
[2019-05-14] MEDS ORDERED: KETOROLAC TROMETHAMINE INJ/PF 30 MG/1 ML SDV IV ONE (17:51)
[2019-05-14 18:07] LABS: ALBUMIN 4.2 g/dL (3.5-5.0); ALKALINE PHOSPHATASE 43 U/L (38-126); ANION GAP 11 (5-19); ASPARTATE AMINO TRANSFERASE 20 U/L (14-36); BILIRUBIN,DIRECT 0.1 mg/dL (0.0-0.4); BILIRUBIN,TOTAL 0.6 mg/dL (0.2-1.3); BLOOD UREA NITROGEN 8 mg/dL (7-20); CALCIUM 9.5 mg/dL (8.4-10.2); CARBON DIOXIDE 27 mmol/L (22-30); CHLORIDE 99 mmol/L (98-107); GLUCOSE 95 mg/dL (75-110); POTASSIUM 3.6 mmol/L (3.6-5.0); TOTAL PROTEIN 7.6 g/dL (6.3-8.2)
[2019-05-14] MEDS ORDERED: MORPHINE SULFATE 10 MG/ML INJ IV ONE ×2 (18:46→20:21)
--- NOTE | 2019-05-14 20:03 | RADIOLOGY REPORT (SQ) ---
EXAM DESCRIPTION: CHEST 2 VIEWS COMPLETED DATE/TIME: 05/14/2019 7:43 pm REASON FOR STUDY: cough COMPARISON: Chest radiographs 11/30/2018 EXAM PARAMETERS: NUMBER OF VIEWS: two views TECHNIQUE: Digital Frontal and Lateral radiographic views of the chest acquired. RADIATION DOSE: NA LIMITATIONS: none FINDINGS: LUNGS AND PLEURA: No opacities, masses or pneumothorax. No pleural effusion. MEDIASTINUM AND HILAR STRUCTURES: No masses or contour abnormalities. HEART AND VASCULAR STRUCTURES: Heart normal size. No evidence for failure. BONES: No acute findings. HARDWARE: None in the chest. OTHER: No other significant finding. IMPRESSION: NO ACUTE RADIOGRAPHIC FINDING IN THE CHEST. TECHNICAL DOCUMENTATION: JOB ID: [id number] [employer]- All Rights Reserved Reading location - IP/workstation name: [email or web address]
[2019-05-14] MEDS ORDERED: CYCLOBENZAPRINE HCL 10 MG TABLET PO ONE (20:21)
--- NOTE | 2019-05-14 20:24 | RADIOLOGY REPORT (SQ) ---
EXAM DESCRIPTION: CT head without contrast CLINICAL HISTORY: 28 years Female, headache COMPARISON: None. TECHNIQUE: Axial images of the head were performed without the use of intravenous contrast, with sagittal and coronal reformatted images. This exam was performed according to our departmental dose-optimization program which includes use of Automated Exposure Control, adjustment of the mA and/or kV according to patient size and/or use of iterative reconstruction technique. FINDINGS: No evidence of acute hemorrhage or infarct. No evidence of mass or hydrocephalus. 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 The sinuses are otherwise clear. IMPRESSION: No intracranial finding.
== END 2019-05-14 20:39 | disposition home or self-care (01) ==
LOC: ER 16:51
DX: R51 Headache (principal); S29.012A Strain of muscle and tendon of back wall of thorax, initial encounter; X58.XXXA Exposure to other specified factors, initial encounter; R11.2 Nausea with vomiting, unspecified; R25.2 Cramp and spasm; M54.9 Dorsalgia, unspecified; I10 Essential (primary) hypertension; E66.9 Obesity, unspecified; D72.829 Elevated white blood cell count, unspecified; D64.9 Anemia, unspecified
CPT/HCPCS: 96376; 99284; 96361; 96374; 96375; 36415; 83690; 84703; 85025; 80053; 71046; 70450; J3490; J1200; J1885; J2270; J0780; J7030

== ENCOUNTER 2019-05-14 21:00 | Emergency (ER) | payer MEDICAID ==
[2019-05-14 21:09] VITALS: BP 173/119
--- NOTE | 2019-05-14 21:20 | ER Document Report ---
ED Medical Screen (RME) - General Chief Complaint: Back Pain Stated Complaint: ANXIETY Time Seen by Provider: 05/14/19 21:05 Mode of Arrival: Wheelchair Information source: Patient Notes: Patient is a 28-year-old female presenting into the emergency department immediately after discharge from the emergency department complaining of that she has vomited again. Patient allegedly was found out in the parking lot vomiting by a bystander and they brought her back into the ER. Patient's father is now here to pick the patient up and patient does not want to officially be seen. Patient departed from the [facility] area. TRAVEL OUTSIDE OF THE [place] IN LAST 30 DAYS: No - Related Data Allergies/Adverse Reactions: No Known Allergies Allergy (Verified 05/14/19 17:08) Past Medical History - Social History Chew tobacco use (# tins/day): No Frequency of alcohol use: None Drug Abuse: None - Past Medical History Cardiac Medical History: Reports: Hx Hypertension Renal/ Medical History: Denies: Hx Peritoneal Dialysis Past Surgical History: Reports: Hx Section Physical Exam - Vital signs Vitals: Temp Pulse Resp BP Pulse Ox 98.3 F 100 24 H 173/119 H 100 05/14/19 21:08 05/14/19 21:08 05/14/19 21:08 05/14/19 21:08 05/14/19 21:08 Course - Vital Signs Vital signs: Temp Pulse Resp BP Pulse Ox 98.3 F 100 24 H 173/119 H 100 05/14/19 21:08 05/14/19 21:08 05/14/19 21:08 05/14/19 21:08 05/14/19 21:08
== END 2019-05-14 21:15 | disposition home or self-care (01) ==
LOC: ER 21:00
DX: R11.10 Vomiting, unspecified (principal); I10 Essential (primary) hypertension; Z53.29 Procedure and treatment not carried out because of patient's decision for other reasons
CPT/HCPCS: 99281

== ENCOUNTER 2019-11-26 07:35 | Emergency (ER) | payer SELFPAY ==
[2019-11-26] MEDS ORDERED: KETOROLAC TROMETHAMINE INJ/PF 30 MG/1 ML SDV IV ONE (08:35)
[2019-11-26] MEDS ORDERED: NORMAL SALINE 500 ML IV ONE (08:35)
[2019-11-26] MEDS ORDERED: METOCLOPRAMIDE HCL INJ/PF 10 MG/2 ML SDV IV ONE (08:35)
[2019-11-26] MEDS ORDERED: DIPHENHYDRAMINE HCL 50 MG/ML VIAL IV ONE ×2 (08:36→09:57)
--- NOTE | 2019-11-26 08:42 | ER Document Report ---
ED General - General Chief Complaint: Headache Stated Complaint: HEADACHE/VOMITING Time Seen by Provider: 11/26/19 07:48 TRAVEL OUTSIDE OF THE [place] IN LAST 30 DAYS: No - HPI Notes: Chief complaint: Headache, nausea and abdominal cramping HPI: 29-year-old female with 1 week history intermittent symptoms as noted above. Headache is described as bitemporal and intermittently throbbing. She has been nauseated not eating well. Denies vomiting. Intermittent cramping of abdomen. Mildly photophobic. No skin rashes. No fever chills. No sore throat. No respiratory symptoms. No dysuria. Review of prior records here shows that the patient presented with similar symptoms about [address] Negative head CT at that time and good response to IV fluids and migraine cocktail. Patient is taking no long-term medications. She is followed at [facility]. No long-term medical problems reported. Last menses 2 weeks ago described as normal. - Related Data Allergies/Adverse Reactions: haloperidol [From Haldol] Allergy (Verified 11/26/19 07:56) Past Medical History - General Information source: Patient, [facility] Records - Social History Smoking Status: Current Some Day Smoker Chew tobacco use (# tins/day): No Frequency of alcohol use: None Drug Abuse: None Family History: None Patient has suicidal ideation: No Patient has homicidal ideation: No - Past Medical History Cardiac Medical History: Reports: Hx Hypertension Renal/ Medical History: Reports: Hx Kidney Stones. Denies: Hx Peritoneal Dialysis Past Surgical History: Reports: Hx Section, Hx Kidney (Renal Surgery) - lithotripsy Review of Systems - Review of Systems Notes: Constitutional: Negative for fever. HENT: Negative for sore throat. Eyes: Negative for visual changes. Cardiovascular: Negative for chest pain. Respiratory: Negative for shortness of breath. Gastrointestinal: As per HPI. Genitourinary: Negative for dysuria. Musculoskeletal: Negative for back pain. Skin: Negative for rash. Neurological: As per HPI. No focal weakness or numbness. 10 point ROS negative except as marked above and in HPI. Physical Exam - Vital signs Vitals: Temp Pulse Resp BP Pulse Ox 98.5 F 79 18 152/83 H 100 11/26/19 07:41 11/26/19 07:41 11/26/19 07:41 11/26/19 07:41 11/26/19 07:41 - Notes Notes: GENERAL: Moderately obese female approximately stated age appearing in no acute distress. SKIN: Good turgor no rashes. HEAD: Normocephalic atraumatic. EYES: PERRLA. EOMI. Conjunctivae and sclerae clear. EARS: CANALS AND TMS CLEAR. NOSE: CLEAR. MOUTH: Moist mucosa. Good dentition. No stridor or edema. No drooling. NECK: Supple. No masses or thyromegaly. No adenopathy. Carotids 2+ without bruits. No JVD. BACK: Symmetrical without tenderness. CHEST: Respirations unlabored. Breath sounds clear and symmetrical. HEART: Regular rhythm. No murmur gallop or rub. ABDOMEN: Soft nontender without masses, organomegaly or rebound. Bowel sounds normally active. No bruits. GENITALIA: Deferred. EXTREMITIES: No edema. No calf tenderness. Cap refill less than 1.5 seconds. Dorsalis pedis and posterior tibial pulses 3+ and symmetrical. NEUROLOGICAL: GCS 15. Alert and oriented x3. Normal gait. Fluent speech. Cranial nerves II through XII intact. Sensorimotor and cerebellar normal. Normal tone. PSYCHIATRIC: Appropriate affect. Course - Re-evaluation Re-evalutation: 11/26/19 11:34 The patient received Toradol, Benadryl and Reglan and has experienced resolution of her headache. She is no longer nauseated. She feels better and requests discharge which I would feel to be appropriate. - Vital Signs Vital signs: Temp Pulse Resp BP Pulse Ox 98.5 F 79 18 152/83 H 100 11/26/19 07:56 11/26/19 07:41 11/26/19 07:41 11/26/19 07:41 11/26/19 07:41 - Laboratory Result Diagrams: 11/26/19 09:15 11/26/19 09:15 Laboratory results interpreted by me: 11/26/19 11/26/19 11/26/19 09:15 09:15 09:15 Hgb 10.5 L Hct 31.9 L MCV 73 L MCH 23.9 L RDW 19.5 H Plt Count 462 H Sodium 135.1 L Potassium 3.5 L Chloride 95 L BUN 5 L Glucose 121 H Total Protein 8.3 H Urine Protein 100 H Urine Ketones TRACE H Urine Urobilinogen 4.0 H Urine Ascorbic Acid 20 H Discharge - Discharge Clinical Impression: Headache Qualifiers: Headache type: unspecified Headache chronicity pattern: acute headache Intractability: not intractable Qualified Code(s): R51 - Headache Condition: Stable Disposition: HOME, SELF-CARE Instructions: Headache ([facility]) Additional Instructions: Return here as needed for new or worsening symptoms: Pain that is worsening or unimproved Uncontrolled vomiting High fever or shaking chills Overall worsening Follow-up as needed with your primary care doctor.
[2019-11-26 09:50] LABS: ABSOLUTE BASOPHILS # (AUTO) 0.1 10^3/uL (0.0-0.2); ABSOLUTE LYMPHOCYTES (AUTO) 2.1 10^3/uL (0.5-4.7); ABSOLUTE MONOCYTES (AUTO) 0.6 10^3/uL (0.1-1.4); ABSOLUTE NEUT (AUTO) 5.5 10^3/uL (1.7-8.2); BASOPHILS % (AUTO) 0.9 % (0-2); EOSINOPHILS % (AUTO) 0.6 % (0-6); HEMATOCRIT 31.9 % (36.0-47.0); HEMOGLOBIN 10.5 g/dL (12.0-15.5); LYMPHOCYTES % (AUTO) 24.9 % (13-45); MEAN CORPUSCULAR HEMOGLOBIN 23.9 pg (27.0-33.4); MEAN CORPUSCULAR HGB CONC 32.9 g/dL (32.0-36.0); MEAN CORPUSCULAR VOLUME 73 fl (80-97); MONOCYTES % (AUTO) 7.4 % (3-13); PLATELET COUNT 462 10^3/uL (150-450); RED CELL DISTRIBUTION WIDTH 19.5 % (11.5-14.0); SEGMENTED NEUTROPHILS % (AUTO) 66.2 % (42-78); TOTAL CELLS COUNTED % (AUTO) 100 %; WHITE BLOOD COUNT 8.3 10^3/uL (4.0-10.5)
[2019-11-26 09:51] LABS: ALBUMIN 4.5 g/dL (3.5-5.0); ALKALINE PHOSPHATASE 43 U/L (38-126); ANION GAP 11 (5-19); ASPARTATE AMINO TRANSFERASE 18 U/L (14-36); BILIRUBIN,TOTAL 0.8 mg/dL (0.2-1.3); BLOOD UREA NITROGEN 5 mg/dL (7-20); CALCIUM 9.6 mg/dL (8.4-10.2); CARBON DIOXIDE 29 mmol/L (22-30); CHLORIDE 95 mmol/L (98-107); GLUCOSE 121 mg/dL (75-110); POTASSIUM 3.5 mmol/L (3.6-5.0); TOTAL PROTEIN 8.3 g/dL (6.3-8.2)
[2019-11-26 09:53] LABS: AMORPHOUS SEDIMENT,URINE TRACE /HPF; APPEARANCE,URINE CLOUDY; BILIRUBIN,URINE NEGATIVE (NEGATIVE); COLOR,URINE AMBER; GLUCOSE, URINE NEGATIVE (NEGATIVE); KETONES,URINE TRACE mg/dL (NEGATIVE); PROTEIN,URINE 100 mg/dL (NEGATIVE); URINE SPECIFIC GRAVITY 1.021
[2019-11-26] MEDS ORDERED: KETOROLAC TROMETHAMINE 60 MG/2 ML SDV IM ONE (09:56)
[2019-11-26] MEDS ORDERED: METOCLOPRAMIDE HCL INJ/PF 10 MG/2 ML SDV IM ONE (09:57)
[2019-11-26 10:11] LABS: URINE AMPHETAMINES SCREEN NEGATIVE; URINE BARBITURATES SCREEN NEGATIVE; URINE BENZODIAZEPINES SCREEN NEGATIVE; URINE COCAINE SCREEN NEGATIVE; URINE METHADONE SCREEN NEGATIVE; URINE PHENCYCLIDINE SCREEN NEGATIVE
[2019-11-26 10:12] LABS: URINE MARIJUANA (THC) SCREEN UNCONFIRMED POSITIVE
[2019-11-26] MEDS ORDERED: DIPHENHYDRAMINE HCL 50 MG/ML VIAL IM ONE (10:18)
[2019-11-26 11:37] VITALS: BP 152/92
== END 2019-11-26 11:40 | disposition home or self-care (01) ==
LOC: ER 07:35
DX: R51 Headache (principal); R11.10 Vomiting, unspecified; F17.200 Nicotine dependence, unspecified, uncomplicated; I10 Essential (primary) hypertension; Z87.442 Personal history of urinary calculi
CPT/HCPCS: 99284; 96372; 36415; 84703; 85025; 80053; 81001; 80307; J1200; J1885; J2765

== ENCOUNTER 2019-12-16 05:09 | Emergency (ER) | payer SELFPAY ==
[2019-12-16] MEDS ORDERED: DIPHENHYDRAMINE HCL 50 MG/ML VIAL IV ONE (05:22)
[2019-12-16] MEDS ORDERED: KETOROLAC TROMETHAMINE INJ/PF 30 MG/1 ML SDV IV ONE (05:22)
[2019-12-16] MEDS ORDERED: PROMETHAZINE HCL INJ 25 MG/1 ML VIAL IM ONE (05:22)
[2019-12-16] MEDS ORDERED: NORMAL SALINE 1000 ML 1,000 ML IV ONE (05:22)
--- NOTE | 2019-12-16 05:25 | ER Document Report ---
ED GI/ - General Chief Complaint: Abdominal Pain Stated Complaint: ABDOMINAL PAIN, VOMITING, NAUSEA Time Seen by Provider: 12/16/19 05:17 Notes: Patient is a 29-year-old female that comes emergency department for chief complaint of lower abdominal pain and vomiting. She states that she started having pain with her menstrual cycle, she has had pain since last night, she states she has vomited "multiple times". She denies particular area of pain just the general lower abdomen, she denies flank pain, fever/chills, dysuria, vaginal discharge, abnormal bowel movements. She denies any surgeries, daily medications. She states she has had kidney stones in the past but this does not feel the same. Only other reported medical history of . TRAVEL OUTSIDE OF THE [place] IN LAST 30 DAYS: No - Related Data Allergies/Adverse Reactions: haloperidol [From Haldol] Allergy (Verified 11/26/19 07:56) Past Medical History - General Information source: Patient - Social History Smoking Status: Never Smoker Drug Abuse: None Lives with: Family Family History: None - Past Medical History Cardiac Medical History: Reports: Hx Hypertension Renal/ Medical History: Reports: Hx Kidney Stones. Denies: Hx Peritoneal Dialysis Past Surgical History: Reports: Hx Section, Hx Kidney (Renal Surgery) - lithotripsy Review of Systems - Review of Systems Constitutional: No symptoms reported EENT: No symptoms reported Cardiovascular: No symptoms reported Respiratory: No symptoms reported Gastrointestinal: See HPI Genitourinary: No symptoms reported Female Genitourinary: See HPI Musculoskeletal: No symptoms reported Skin: No symptoms reported Hematologic/Lymphatic: No symptoms reported Neurological/Psychological: No symptoms reported Physical Exam - Vital signs Vitals: Temp Pulse Resp BP Pulse Ox 98.7 F 72 16 133/91 H 100 12/16/19 05:18 12/16/19 05:18 12/16/19 05:18 12/16/19 05:18 12/16/19 05:18 - Notes Notes: GENERAL: Alert, intermittently writhing around in bed HEAD: Normocephalic, atraumatic. EYES: Pupils equal, round, and reactive to light. Extraocular movements intact. ENT: Oral mucosa moist, tongue midline. Oropharynx unremarkable. Airway patent. NECK: Full range of motion. Supple. Trachea midline. No lymphadenopathy. LUNGS: Clear to auscultation bilaterally, no wheezes, rales, or rhonchi. No respiratory distress. Non-tender chest wall. HEART: Regular rate and rhythm. No murmur ABDOMEN: Soft, non-tender. Non-distended. Bowel sounds present in all 4 quadrants. No guarding or rigidity. EXTREMITIES: Moves all 4 extremities spontaneously. No edema, normal radial and dorsalis pedis pulses bilaterally. No cyanosis. BACK: no cervical, thoracic, lumbar midline tenderness. No saddle anesthesia, normal distal neurovascular exam. Moves all extremities in full range of motion. NEUROLOGICAL: Alert and oriented x3. Normal speech. Cranial nerves II through XII grossly intact. Strength 5/5 in all extremities. PSYCH: Patient anxious and moaning one second, the next second she appears calm, makes eye contact, and is responsive. SKIN: Warm, dry, normal turgor. No rashes or lesions noted. Course - Re-evaluation Re-evalutation: Patient writhing around on the bed although when engaged she becomes calm and interactive. She is also noted to be holding her abdomen, looking around, smiling intermittently. Abdomen is very soft and benign. Vital signs are unremarkable. Based on her initial evaluation I have a low suspicion of acute abdomen. Treating symptoms, providing with IV fluids, medications, work-up pending. Patient is allergic to Haldol, therefore she will be given Phenergan and Benadryl instead along with Toradol and IV fluids. CBC shows microcytic anemia but this is at baseline, no leukocytosis. Chemistry unremarkable. Less than 1 minute after patient received her medications patient appeared to be trying to make herself vomit, she stated that "this is not going to work unless I get pain medicine". Patient did not actually vomit. 12/16/19 06:56 Patient sleeping soundly on reevaluation, drooled on her arm. I will the patient, discussed her work-up so far. I asked if patient had any questions. After this patient started grimacing, rolling onto her side, stated "I need something for the pain". Explained to her that it does not appear that she has any surgical abnormality or life-threatening abnormality and I do not feel narcotic pain medication would be appropriate for her pain today or her menstrual cramps. We will p.o. trial, obtain urine. Patient did nod understanding. 12/16/19 07:47 Patient tolerated p.o. without any difficulty. She has not vomited. She has been drinking fluids and took Pepcid. On my reevaluation patient does not have any complaints. Patient stated she did "not want to give a urine sample". She did not have any dysuria, flank pain, or any current symptoms. Patient will be provided with naproxen for menstrual cramps, Phenergan for nausea if needed, I discussed follow-up instructions and return precautions. Patient states she does not have any other questions and she is ready to leave. Stable and well- appearing at time of discharge. - Vital Signs Vital signs: Temp Pulse Resp BP Pulse Ox 98.7 F 72 16 133/91 H 100 12/16/19 05:19 12/16/19 05:18 12/16/19 05:18 12/16/19 05:18 12/16/19 05:18 - Laboratory Result Diagrams: 12/16/19 05:28 12/16/19 05:28 Laboratory results interpreted by me: 12/16/19 12/16/19 05:28 05:28 Hgb 10.6 L Hct 32.9 L MCV 73 L MCH 23.6 L RDW 19.6 H Sodium 136.9 L Glucose 112 H Discharge - Discharge Clinical Impression: Menstrual cramps Abdominal pain Qualifiers: Abdominal location: generalized Qualified Code(s): R10.84 - Generalized abd ominal pain Vomiting Qualifiers: Vomiting type: unspecified Vomiting Intractability: non-intractable Nausea pr esence: without nausea Qualified Code(s): R11.11 - Vomiting without nausea Condition: Stable Disposition: HOME, SELF-CARE Additional Instructions: Your work-up and evaluation do not show any concerning findings. Take naproxen if needed for menstrual cramping, take Phenergan if needed for nausea, drink plenty of fluids. Follow-up with primary care for additional management. Return if you worsen including uncontrolled vomiting, developing fever, severe worsening pain, or any other concerning or worsening symptoms. Prescriptions: Naproxen 500 mg PO BID PRN #20 tablet PRN Reason: Promethazine HCl [Phenergan 25 mg Tablet] 25 mg PO Q6H PRN #15 tablet PRN Reason: Forms: Return to Work
[2019-12-16 06:13] LABS: ALBUMIN 4.4 g/dL (3.5-5.0); ALKALINE PHOSPHATASE 46 U/L (38-126); ANION GAP 10 (5-19); ASPARTATE AMINO TRANSFERASE 20 U/L (14-36); BILIRUBIN,TOTAL 1.1 mg/dL (0.2-1.3); BLOOD UREA NITROGEN 10 mg/dL (7-20); CALCIUM 9.8 mg/dL (8.4-10.2); CARBON DIOXIDE 24 mmol/L (22-30); CHLORIDE 103 mmol/L (98-107); GLUCOSE 112 mg/dL (75-110); TOTAL PROTEIN 8.1 g/dL (6.3-8.2)
[2019-12-16 06:26] LABS: ABSOLUTE BASOPHILS # (AUTO) 0.1 10^3/uL (0.0-0.2); ABSOLUTE EOSINOPHILS # (AUTO) 0.1 10^3/uL (0.0-0.6); ABSOLUTE LYMPHOCYTES (AUTO) 2.2 10^3/uL (0.5-4.7); ABSOLUTE MONOCYTES (AUTO) 0.6 10^3/uL (0.1-1.4); ABSOLUTE NEUT (AUTO) 6.9 10^3/uL (1.7-8.2); BASOPHILS % (AUTO) 0.9 % (0-2); EOSINOPHILS % (AUTO) 0.6 % (0-6); HEMATOCRIT 32.9 % (36.0-47.0); HEMOGLOBIN 10.6 g/dL (12.0-15.5); LYMPHOCYTES % (AUTO) 22.4 % (13-45); MEAN CORPUSCULAR HEMOGLOBIN 23.6 pg (27.0-33.4); MEAN CORPUSCULAR HGB CONC 32.3 g/dL (32.0-36.0); MEAN CORPUSCULAR VOLUME 73 fl (80-97); MONOCYTES % (AUTO) 5.7 % (3-13); PLATELET COUNT 427 10^3/uL (150-450); RED BLOOD COUNT 4.51 10^6/uL (3.72-5.28); RED CELL DISTRIBUTION WIDTH 19.6 % (11.5-14.0); SEGMENTED NEUTROPHILS % (AUTO) 70.4 % (42-78); TOTAL CELLS COUNTED % (AUTO) 100 %; WHITE BLOOD COUNT 9.8 10^3/uL (4.0-10.5)
[2019-12-16] MEDS ORDERED: FAMOTIDINE 20 MG TABLET PO ONE (06:55)
[2019-12-16 07:58] VITALS: BP 136/81
== END 2019-12-16 07:58 | disposition home or self-care (01) ==
LOC: ER 05:09
DX: N94.6 Dysmenorrhea, unspecified (principal); R10.84 Generalized abdominal pain; R11.11 Vomiting without nausea; R10.30 Lower abdominal pain, unspecified; R51 Headache; I10 Essential (primary) hypertension; Z87.442 Personal history of urinary calculi
CPT/HCPCS: 99284; 96372; 96361; 96374; 96375; 36415; 83690; 84703; 85025; 80053; J1200; J1885; J2550; J7030

== ENCOUNTER 2019-12-16 10:19 | Emergency (ER) | payer SELFPAY ==
--- NOTE | 2019-12-16 10:59 | ER Document Report ---
ED GI/ - General Chief Complaint: Abdominal Pain Stated Complaint: VOMITING/HEADACHE Time Seen by Provider: 12/16/19 10:32 Primary Care Provider: [facility] [Provider Group] - Follow up as needed Notes: Patient is a 29-year-old female who presents to the emergency department with a chief complaint of vomiting and a headache. She was seen this morning and was discharged with nausea medication. She did not get her medications refilled. During her visit here, she did not provide a urine sample. Patient states that she felt better when she left, but when she woke up she ended up vomiting again. Patient also states, "I just do not want to be in this world anymore." She did not admit to any suicidal ideation, but states that when she does not feel well, she feels this way. Denies any plan. Denies any homicidal ideation. She states that she is currently on her menstrual cycle. She states that this happens every month when she ends up having her menstrual cycle. States that she is had 3 abortions and a . Denies any sexual activity, vaginal discharge, or any other symptoms at this time. Patient states that she lives in [place] and normally goes to the emergency room there. States only medication that helps with her pain is morphine. TRAVEL OUTSIDE OF THE [place] IN LAST 30 DAYS: No - Related Data Allergies/Adverse Reactions: haloperidol [From Haldol] Allergy (Verified 12/16/19 10:37) Past Medical History - Social History Smoking Status: Current Every Day Smoker Family History: None Patient has homicidal ideation: No - Past Medical History Cardiac Medical History: Reports: Hx Hypertension Renal/ Medical History: Reports: Hx Kidney Stones. Denies: Hx Peritoneal Dialysis Past Surgical History: Reports: Hx Section, Hx Kidney (Renal Surgery) - lithotripsy Review of Systems - Review of Systems Notes: REVIEW OF SYSTEMS: CONSTITUTIONAL : Denies recent illness. Denies recent unintentional weight loss. Denies fever, chills, or sweats. EENT: Denies eye, ear, throat, or mouth pain, discharge, or symptoms. Denies nasal or sinus congestion. CARDIOVASCULAR: Denies chest pain. RESPIRATORY: Denies shortness of breath, cough, congestion, difficulty breathing, or wheezing. GASTROINTESTINAL: See HPI. GENITOURINARY: Denies difficulty urinating, burning, blood in urine, urgency or frequency. MUSCULOSKELETAL: Denies neck and back pain. Denies joint pain or swelling. SKIN: Denies rash, itchiness, or lesions HEMATOLOGIC : Denies easy bruising or bleeding. LYMPHATIC: Denies swollen, painful, enlarged glands. NEUROLOGICAL: Denies no numbness or tingling denies weakness. Denies headache. Denies altered mental status. Denies alteration in speech. PSYCHIATRIC: See HPI. All other systems reviewed and negative. Physical Exam - Vital signs Vitals: Temp Pulse Resp BP Pulse Ox 98.2 F 85 18 153/116 H 100 12/16/19 10:37 12/16/19 10:37 12/16/19 10:37 12/16/19 10:37 12/16/19 10:37 - Notes Notes: PHYSICAL EXAMINATION: GENERAL: Appears well, healthy, well-nourished, no acute distress. HEAD: Normocephalic, atraumatic. EYES: PERRL, conjunctiva normal, all extraocular movements intact, sclera nonicteric ENT: Moist mucous membranes. NECK: Supple, no noticeable swelling, redness, rash. Normal range of motion. LUNGS: Equal breath sounds bilaterally and clear to auscultation. No wheezes rales or rhonchi. CARDIOVASCULAR: S1-S2, regular rate, regular rhythm. Radial pulses 2+, normal. ABDOMEN: Normoactive bowel sounds. Soft, nontender, no guarding, no rebound tenderness, and no masses palpated. EXTREMITIES: Normal strength and range of motion, no pitting or edema. No cyanosis. NEUROLOGICAL: Moves all extremities upon command. Strength 5/5 in all extremities. PSYCH: Tearful and crying. SKIN: Warm, dry. No rash, lesions, ulcerations noted. Normal skin turgor. Course - Re-evaluation Re-evalutation: 12/16/19 12:00 Patient was writhing around saying that she could not stand the pain anymore. This is a very similar presentation as to the presentation she had earlier with her previous visit. At that time, she received IV fluids, Benadryl, Phenergan, and Toradol. She had good results with these medications. 12/16/19 14:00 Urinalysis shows blood in her urine, but she is currently on her menstrual cycle. No leukocytes noted in her urine.Patient states that she feels better after receiving Valium. She also did speak with mental health. Mental health is recommending that she follow-up with OB in regards to this issue, as she continues to have emotional swings during her menstrual cycle because of her pain. [facility]. Discussed this plan with patient. She will also go home with [facility]. Physical exam is very benign. I have very low suspicion for appendicitis, ovarian torsion, pancreatitis, gastritis, PID or any other life-threatening etiology at this time. Follow-up precautions were given. Verbal discharge instructions were given to the patient. They verbalized understanding. They are stable for discharge. - Vital Signs Vital signs: Temp Pulse Resp BP Pulse Ox 98.4 F 82 18 148/89 H 100 12/16/19 13:44 12/16/19 13:44 12/16/19 13:44 12/16/19 13:44 12/16/19 13:44 - Laboratory Laboratory results interpreted by me: 12/16/19 11:30 Urine Protein 100 H Urine Ketones 80 H Urine Blood LARGE H Urine Bilirubin SMALL H Urine Urobilinogen 4.0 H Discharge - Discharge Clinical Impression: Menstrual cramps Vomiting Qualifiers: Vomiting type: unspecified Vomiting Intractability: unspecified Nausea presence: with nausea Qualified Code(s): R11.2 - Nausea with vomiting, unspecified Abdominal pain Qualifiers: Abdominal location: lower abdomen, unspecified Qualified Code(s): R10.30 - Lower abdominal pain, unspecified Condition: Stable Disposition: HOME, SELF-CARE Instructions: Antinausea Medication ([facility]), Vomiting ([facility]) Additional Instructions: You are seen today in the emergency department for vomiting, nausea, and abdominal pain. Your pain is due to your menstrual cycle. Please follow-up with [facility] in regards to this issue. Take nausea medication as prescribed. Prescriptions: Ondansetron [Zofran Odt 4 mg Tablet] 1 - 2 tab PO Q4H PRN #15 tab.rapdis PRN Reason: For Nausea/Vomiting Referrals: [facility] [Provider Group] - Follow up as needed
[2019-12-16] MEDS ORDERED: PROMETHAZINE HCL 25 MG SUPP.RECT PR ONE (11:00)
[2019-12-16] MEDS ORDERED: ONDANSETRON HCL INJ/PF 4 MG/2 ML SDV IM ONE (12:11)
[2019-12-16] MEDS ORDERED: ONDANSETRON HCL INJ/PF 4 MG/2 ML SDV IV ONE (12:11)
[2019-12-16] MEDS ORDERED: DIAZEPAM INJ 10 MG/2 ML DISP.SYRIN IM ONE (12:12)
[2019-12-16 12:19] LABS: AMORPHOUS SEDIMENT,URINE TRACE /HPF; APPEARANCE,URINE SLIGHTLY-CLOUDY; BILIRUBIN,URINE SMALL (NEGATIVE); COLOR,URINE AMBER; GLUCOSE, URINE NEGATIVE (NEGATIVE); KETONES,URINE 80 mg/dL (NEGATIVE); LEUKOCYTE ESTERASE,URINE NEGATIVE (NEGATIVE); NITRITE,URINE NEGATIVE (NEGATIVE); PROTEIN,URINE 100 mg/dL (NEGATIVE); URINE SPECIFIC GRAVITY 1.028
[2019-12-16 12:54] LABS: URINE AMPHETAMINES SCREEN NEGATIVE; URINE BARBITURATES SCREEN NEGATIVE; URINE BENZODIAZEPINES SCREEN NEGATIVE; URINE COCAINE SCREEN NEGATIVE; URINE METHADONE SCREEN NEGATIVE; URINE PHENCYCLIDINE SCREEN NEGATIVE
[2019-12-16 13:02] LABS: URINE MARIJUANA (THC) SCREEN UNCONFIRMED POSITIVE
[2019-12-16] MEDS ORDERED: DIAZEPAM 2 MG TABLET PO ONE (13:07)
[2019-12-16] MEDS ORDERED: ONDANSETRON 4 MG TAB.RAPDIS PO ONE (13:16)
[2019-12-16] MEDS ORDERED: ONDANSETRON ODT 4 MG TAB (6 TAB/ER DISP) PO PRN (13:51)
[2019-12-16 14:08] VITALS: BP 148/89
== END 2019-12-16 13:56 | disposition home or self-care (01) ==
LOC: ER 10:19
DX: N94.6 Dysmenorrhea, unspecified (principal); R11.2 Nausea with vomiting, unspecified; R10.30 Lower abdominal pain, unspecified; R51 Headache; Z88.8 Allergy status to other drugs, medicaments and biological substances; F17.200 Nicotine dependence, unspecified, uncomplicated; I10 Essential (primary) hypertension
CPT/HCPCS: 99284; 81001; 80307; J3490 ×2; S0119